=== PATIENT | male | born 1955 | race Two or more races ===

== ENCOUNTER → 2016-06-03 | Outpatient (REF) | payer OTHER | LOC: M SMT 13:09 | PROVIDERS: ATTEND Nurse Practitioner Family | DX: N48.9 Disorder of penis, unspecified (principal) ==

== ENCOUNTER → 2016-06-03 | Outpatient (CLI) | payer OTHER ==
[2016-06-03 13:32] LABS: ANION GAP 10 MEQ/L (8-16); BLOOD UREA NITROGEN 20 MG/DL (7-18); CALCIUM LEVEL 9.9 MG/DL (8.8-10.2); CARBON DIOXIDE LEVEL 29 MEQ/L (21-32); CHLORIDE LEVEL 102 MEQ/L (98-107); CREATININE FOR GFR 0.78 MG/DL (0.70-1.30); GLOMERULAR FILTRATION RATE > 60.0 (>49); GLUCOSE, FASTING 169 MG/DL (80-110); POTASSIUM SERUM 4.3 MEQ/L (3.5-5.1); SODIUM LEVEL 141 MEQ/L (136-145)
== END ==
LOC: M SMT 08:58
PROVIDERS: ATTEND Nurse Practitioner Family
DX: R59.0 Localized enlarged lymph nodes (principal)

== ENCOUNTER → 2016-06-08 | Outpatient (CLI) | payer OTHER ==
--- NOTE | 2016-06-08 15:10 | REP ---
MRI PELVIS WITHOUT AND WITH CONTRAST: 06/08/2016. Clinical history: Penile lesion. Evaluate for penile malignancy. Enlarged inguinal nodes on the left. Technique: The initial pelvic scan attempt was interrupted due to severe claustrophobia and the patient moved to the open bore scanner. He completed the exam with some difficulty and I appreciate his and the technologist's effort in this regard. Coronal and sagittal localizers with axial T1 fat suppressed T2, coronal gradient echo and T2 with fat suppressed T1, sagittal fat suppressed T2 and thin section coronal and sagittal images through the plane of the penis. After infusion, the patient received 18 ml as of ProHance. In the left inguinal region, there are enhancing left inguinal nodes, the largest conglomerate carlos mass 5.1 x 4.8 x 3 cm. Adjacent smaller nodes seen in the left inguinal canal. No similar right inguinal nodes. I do not see deep pelvic nodes in the internal or external iliac chain or perirectal region. No pelvic free fluid. Bone marrow grossly intact. The sacrum, iliac bone, hips and ischia. Prostate and seminal vesicles are not enlarged. Bladder shows no wall thickening or mass. No dilated distal ureter. There is asymmetry at the head of the penis with some slightly hyperintense, slight heterogeneity and hyperintensity. The inguinal mass on the left representing multiple nodes, conglomerate is enhancing. Impression: 1. There is heterogeneous appearance of the glans penis towards the right side of midline with heterogeneous enhancement. Also, there is marked abnormal conglomerate carlos mass / adenopathy on the left inguinal region up to 5.1cm without similar finding on the right. Those nodes on the right are not larger than 11 mm. This would make the largest of these borderline. No deep pelvic nodes, free fluid, bladder abnormality or enlargement of the prostate/seminal vesicles. Marrow signal unremarkable. Signed by Francisco Bauer MD 06/08/2016 05:24 P
--- NOTE | 2016-06-08 15:16 | REP ---
MRI ABDOMEN WITHOUT AND WITH CONTRAST: 06/08/2016. Clinical history: Left inguinal adenopathy/mass with penile lesion. Evaluate for retroperitoneal adenopathy in the abdomen. Technique: Coronal gradient echo T1 and fat suppressed T1 images, axial T1 fat suppressed T1 and T2 images followed by infusion of 18 mL of ProHance with fat suppressed T1 axial and coronal images through the abdomen. Liver and spleen are not enlarged. There is no cyst or solid mass. No biliary dilatation. I see no ascites in the abdomen. The aorta is without aneurysm. Kidneys show small peripheral cortical cysts without hydronephrosis, solid mass or perinephric edema. No hydronephrosis or hydroureter. Largest cyst is peripherally in the interpolar region within the cortex about 11 mm. I see no mass or inflammatory change about the pancreas. The aorta and periaortic region without adenopathy nearby. No mesenteric adenopathy or pathologic sized lesion. There is an 8 mm cystic area at the anterior margin of the body of the pancreas without enhancement of its margins or peripancreatic enhancement. Small bowel loops and colon grossly intact. There is a trace amount of gravel or tiny stones in the dependent gallbladder. Impression: 1. There is no renal solid mass with a few small cortical cysts, the largest laterally on the left 11 mm. 2. No hydronephrosis, hydroureter, or perinephric edema. 3. There is a peripancreatic cyst about 8 mm without abnormal enhancement and the pancreas otherwise entirely unremarkable without adjacent edema or fluid. 4. Liver, spleen, adrenal glands, stomach, small bowel loops and aorta unremarkable. 5. No other acute finding. Signed by Francisco Bauer MD 06/08/2016 05:25 P
== END ==
LOC: M RAD 09:51
PROVIDERS: ATTEND Nurse Practitioner Family
DX: N28.1 Cyst of kidney, acquired (principal); R59.0 Localized enlarged lymph nodes; K86.2 Cyst of pancreas; N48.9 Disorder of penis, unspecified
CPT/HCPCS: 72197; 74183; A9576

== ENCOUNTER → 2016-06-17 | Outpatient (CLI) | payer OTHER ==
[~2016-06-17] MED LIST: LIDOCAINE 1% MDV 20ML VIAL As Ordered ONE
--- NOTE | 2016-06-17 18:32 | REP ---
ULTRASOUND GUIDED LEFT INGUINAL MASS BIOPSY: The procedure was performed under the direct supervision of Dr. Faulkner. The patient has a history of a marked abnormal conglomerate carlos mass/adenopathy in the left inguinal region up to 5.1 cm seen on a previous MRI dated 06/08/2016. The risks and benefits of the procedure were explained to the patient and informed consent was obtained. The left inguinal mass was localized using ultrasound guidance. The skin was prepped and draped in a sterile fashion. 1% Lidocaine was used as a local anesthetic. Using ultrasound guidance a 19/20-gauge coaxial needle biopsy system was inserted and advanced into the mass. 6 core biopsy samples were obtained as well as 6 mL of low viscosity red-colored fluid. All samples were sent to the lab for analysis. The patient tolerated the procedure well and there were no immediate complications. After the appropriate amount of monitored convalescence the patient was discharged from the department. Reviewed by FRANCISCA Patel 06/18/2016 04:04 PEdited and Signed by Dustin Faulkner MD 06/18/2016 05:02 P
== END | disposition home or self-care (01) ==
LOC: M RADPRO 12:21
PROVIDERS: ATTEND Urology
DX: C77.4 Secondary and unspecified malignant neoplasm of inguinal and lower limb lymph nodes (principal); I10 Essential (primary) hypertension; E11.9 Type 2 diabetes mellitus without complications; Z79.84 Long term (current) use of oral hypoglycemic drugs; Z79.899 Other long term (current) drug therapy

== ENCOUNTER → 2016-06-25 | Outpatient (CLI) | payer OTHER ==
[~2016-06-25] MED LIST changes: +GLYX1TAB PO; +LEVA500T PO; -LIDOCAINE 1% MDV 20ML VIAL As Ordered ONE; +LISI10TA4 PO; +METF750T PO; +VITA-122 PO; +instaflex PO
--- NOTE | 2016-06-25 17:37 | REP ---
CHEST, TWO VIEWS: REASON: Lymphadenopathy. PRIORS: None. FINDINGS: The superior mediastinal structures are midline. The cardiac silhouette is unremarkable in size, shape, and position. The diaphragmatic surfaces of the lungs are regular, and the costophrenic angles are clear. The pulmonary mullen are clear. The imaged osseous structures are intact. If mediastinal of hilar lymphadenopathy is of clinical concern then contrast enhanced CT examination of the chest is recommended. IMPRESSION: There is no acute cardiopulmonary disease. Signed by Brody Jolley DO 06/26/2016 11:53 A
[2016-06-25 18:18] LABS: INR 0.89
[2016-06-25 18:30] LABS: MEAN CORPUSCULAR HEMOGLOBIN 29.8 pg (27.0-33.0); MEAN CORPUSCULAR HGB CONC 34.8 g/dl (32.0-36.5); MEAN CORPUSCULAR VOLUME 85.6 fl (80.0-96.0); RED CELL DISTRIBUTION WIDTH 12.8 % (11.5-14.5)
[2016-06-25 18:59] LABS: ANION GAP 11 MEQ/L (8-16); BLOOD UREA NITROGEN 24 MG/DL (7-18); CALCIUM LEVEL 9.8 MG/DL (8.8-10.2); CARBON DIOXIDE LEVEL 29 MEQ/L (21-32); CHLORIDE LEVEL 100 MEQ/L (98-107); GLOMERULAR FILTRATION RATE > 60.0 (>49); GLUCOSE, FASTING 134 MG/DL (80-110); POTASSIUM SERUM 4.2 MEQ/L (3.5-5.1); SODIUM LEVEL 140 MEQ/L (136-145)
== END ==
LOC: M SMT 15:43
PROVIDERS: ATTEND Urology
DX: R59.0 Localized enlarged lymph nodes (principal)

== ENCOUNTER → 2016-07-03 | Outpatient (CLI) | payer OTHER ==
[~2016-07-03] MED LIST changes: +PERCOCET PO
== END ==
LOC: M SMT 15:47
PROVIDERS: ATTEND Urology
DX: D49.59 Neoplasm of unspecified behavior of other genitourinary organ (principal)

== ENCOUNTER 2016-07-07 09:53 | Inpatient (IN) | payer OTHER ==
[~2016-07-07] VITALS: Ht 175.3 cm; Wt 93.4 kg
[2016-07-07] MEDS: LISINOPRIL 10 MG TAB PO SCH (09:00)
[~2016-07-07 09:53] MED LIST changes: -PERCOCET PO
[2016-07-07] MEDS ORDERED: GENTAMICIN 100 MG in APPROPRIATE DILUENT 1 EA IV ONE (10:00)
[2016-07-07] MEDS ORDERED: LR 1,000 ML IV SCH ×2 (10:00→17:15)
[2016-07-07] MEDS ORDERED: VANCOMYCIN HCL 1,000 MG, VIAL MATE ADAPTER 1 EACH in D5W 250 ML IV ONE (11:00)
[2016-07-07] MEDS ORDERED: LIDOCAINE 1% SDV INJ 30 ML VIAL As Ordered ONE (13:47)
[2016-07-07] MEDS ORDERED: BACITRACIN OINT 30GM As Ordered ONE (13:47)
[2016-07-07] MEDS ORDERED: BUPIVACAINE HCL 0.25% 30 ML VIAL As Ordered ONE (13:47)
[2016-07-07] MEDS ORDERED: fentaNYL 100 MCG/2 ML INJECTION (J3010) As Ordered ONE ×2 (13:51→15:04)
[2016-07-07] MEDS ORDERED: MIDAZOLAM INJ 2 MG/2 ML VIAL (J2250) As Ordered ONE (13:51)
[2016-07-07] MEDS ORDERED: LIDOCAINE 2% INJ 100 MG/5 ML SDV (FOR ANES.) As Ordered ONE (13:54)
[2016-07-07] MEDS ORDERED: PROPOFOL 200 MG/20 ML VIAL As Ordered ONE (13:54)
[2016-07-07] MEDS ORDERED: ROCURONIUM BROMIDE 50 MG/5 ML VIAL As Ordered ONE (13:54)
[2016-07-07] MEDS ORDERED: ePHEDrine SULFATE 25 MG/5 ML(5MG/ML) SYRINGE As Ordered ONE (15:39)
[2016-07-07] MEDS ORDERED: PHENYLephrine HCL 500 MCG/5 ML (100MCG/ML) SYRINGE (J2370) As Ordered ONE (15:41)
[2016-07-07] MEDS ORDERED: ONDANSETRON 4MG/2ML VIAL (J2405) As Ordered ONE (15:59)
[2016-07-07] MEDS ORDERED: GLYCOPYRROLATE INJ 0.2 MG/ML 2 ML VIAL As Ordered ONE (16:01)
[2016-07-07] MEDS ORDERED: NEOSTIGMINE 1MG/ML 5 ML SYRINGE (J2710) As Ordered ONE (16:01)
[2016-07-07] MEDS ORDERED: KCL 20MEQ IN D5/.45NACL 1000ML As Ordered ONE (16:47)
[2016-07-07] MEDS ORDERED: ONDANSETRON 4MG/2ML VIAL (J2405) IV PRN ×2 (17:00→17:15)
[2016-07-07] MEDS ORDERED: oxyCODONE 5MG TAB PO PRN (17:00)
[2016-07-07] MEDS ORDERED: MORPHINE 4 MG/ML 1ML SYRINGE IV PRN (17:00)
[2016-07-07] MEDS: KCL 20MEQ IN D5/0.45NS 1000ML 1,000 ML IV SCH (17:00)
[2016-07-07] MEDS ORDERED: METOCLOPRAMIDE INJ 10MG/2ML VIAL (J2765) IV PRN (17:15)
[2016-07-07] MEDS ORDERED: PERCOCET 5MG/325MG TAB PO PRN (17:15)
[2016-07-07] MEDS ORDERED: fentaNYL 100 MCG/2 ML INJECTION (J3010) IV PRN (17:15)
[2016-07-07] MEDS ORDERED: MORPHINE 2 MG/ML 1ML SYRINGE IV PRN (17:15)
[2016-07-07 17:30] VITALS: BP 167/81
[2016-07-07 18:00] VITALS: BP 184/89
[2016-07-07] MEDS ORDERED: LevoFLOXacin IV 500 MG in APPROPRIATE DILUENT 1 EA IV SCH (18:00)
[2016-07-07] MEDS: KETOROLAC 30 MG/ML VIAL (J1885) IV SCH (18:40)
[2016-07-07 19:00] VITALS: BP 188/89
[2016-07-07 20:00] VITALS: BP 172/80
[2016-07-07 21:00] VITALS: BP 154/73
[2016-07-07] MEDS: ACETAMINOPHEN TAB 650MG DOSE (2X325MG) PO SCH (21:27)
[2016-07-07 22:00] VITALS: BP 134/68
--- NOTE | 2016-07-07 23:13 | RO ---
DATE OF PROCEDURE: 07/07/2016 PREOPERATIVE DIAGNOSIS: Penile cancer. POSTOPERATIVE DIAGNOSIS: Penile cancer. PROCEDURE: Open partial penectomy. SURGEON: Dr. Leon Ro MD MBA INTERN: Jose Eduardo Thomas, PGY 3, Resident ANESTHESIA: General. COMPLICATIONS: None. ESTIMATED BLOOD LOSS: 25 mL. 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 He has also a solid mass of about 2 cm in the glans of the penis, which actually does not allow for retraction of the foreskin. For this reason, he has consented for a partial penectomy. DESCRIPTION OF PROCEDURE: In a patient under general anesthesia, in supine position, after prepping and draping the area of the concern, which included the entire genitalia and abdomen, we started by doing a tourniquet with a Gelacio drain in the base of the penis. We then proceeded to fabricio with a marking pen, a circumferential line at the area where we are going to cut the foreskin 1 cm below the penile neoplasm. At that moment in time, with a cold knife, 15 blade, we cut the foreskin and then cut layer by pipe layer helper to the King's fascia. We then, with electro Bovie cautery, opened the King's fascia and then with a cold knife, we cut the corpora cavernosa and the urethra transversely. We suture ligated the dorsal vein of the penis at the superficial dorsal vein as well as the deep dorsal vein with Vicryl #2-0 and silk ties times two. We then proceeded to spatulate and dissected the urethra, spatulating in the urethra in a ventral fashion for about 1.5 cm in length. We then proceeded to close the corpora cavernosa with #2-0 Vicryl starting inside out and outside in in the septum and inside out, outside in in the contralateral corpora cavernosa and tied a knot inside. We then proceeded to place vertical mattress sutures from tunica albuginea of the right corpora cavernosa to the septum and to the tunica albuginea of the left corpora cavernosa and tying knots in separate stitches times ten. We then proceeded to actually secure hemostasis between each stitch with a #2-0 Vicryl in separate stitches also. We then proceeded to reconstruct the urethra by using a #3-0 Monocryl, starting at the apex of the spatulation outside in in the foreskin and inside out in the apex of spatulation and then suturing the urethra to the foreskin with separate stitches of #3-0 Monocryl. Once we completed the urethroplasty, we closed the foreskin on top of the corpora cavernosa in two layers, the first layer with a chromic #3-0 in a running fashion, the second layer with #3-0 Monocryl in separate stitches. We then laced a Drew catheter, 18-Divehi, we inflated the balloon to 10 mL to gravity. We then placed bacitracin, fluffs and firm panties. We then proceeded to actually finish the procedure. The patient will pass to recovery, then to the floor. Once he is tolerating a regular diet, he will be discharged home. The margins for the partial penectomy were negative, permanent pathology analysis did a frozen section on the margins. There were no complications during the surgery.
[2016-07-08 02:00] VITALS: BP 142/72
[2016-07-08] MEDS: KETOROLAC 30 MG/ML VIAL (J1885) IV SCH (02:17)
[2016-07-08] MEDS: KCL 20MEQ IN D5/0.45NS 1000ML 1,000 ML IV SCH (02:17)
[2016-07-08] MEDS: ACETAMINOPHEN TAB 650MG DOSE (2X325MG) PO SCH (05:56)
[2016-07-08 06:00] VITALS: BP 155/76
[2016-07-08 07:55] LABS: MEAN CORPUSCULAR HEMOGLOBIN 29.3 pg (27.0-33.0); MEAN CORPUSCULAR HGB CONC 33.5 g/dl (32.0-36.5); MEAN CORPUSCULAR VOLUME 87.4 fl (80.0-96.0); RED CELL DISTRIBUTION WIDTH 12.8 % (11.5-14.5)
[2016-07-08] MEDS ORDERED: PERCOCET PO (08:08)
[2016-07-08] MEDS ORDERED: LEVA500T PO (08:08)
[2016-07-08 08:11] LABS: ANION GAP 7 MEQ/L (8-16); BLOOD UREA NITROGEN 15 MG/DL (7-18); CALCIUM LEVEL 8.6 MG/DL (8.8-10.2); CARBON DIOXIDE LEVEL 28 MEQ/L (21-32); CHLORIDE LEVEL 104 MEQ/L (98-107); CREATININE FOR GFR 0.86 MG/DL (0.70-1.30); GLOMERULAR FILTRATION RATE > 60.0 (>49); GLUCOSE, FASTING 161 MG/DL (80-110); POTASSIUM SERUM 4.5 MEQ/L (3.5-5.1); SODIUM LEVEL 139 MEQ/L (136-145)
[2016-07-08 08:54] VITALS: BP 155/76
[2016-07-08] MEDS: LISINOPRIL 10 MG TAB PO SCH (08:54)
[2016-07-08] MEDS ORDERED: metFORMIN XR 750 MG TAB PO SCH (09:00)
[2016-07-08] MEDS ORDERED: PANTOPRAZOLE 40MG INJ (PROTONIX) (C9113) IV SCH (09:00)
--- NOTE | 2016-07-08 09:07 | DSES ---
DATE OF ADMISSION: 07/07/2016 DATE OF DISCHARGE: ADMISSION DIAGNOSES: Penile neoplasm. DISCHARGE DIAGNOSIS: Penile neoplasm. SURGERY PERFORMED: Partial penectomy. SURGEON: Dr. Leon Ro DATE OF SURGERY: 07/07/2016 DISCHARGE SURGEON: Dr. Leon Ro ADMITTING SURGEON: Dr. Leon Ro HISTORY OF PRESENT ILLNESS: This is a 60-year-old male patient that had 4 cm inguinal lymphadenopathy and a solid penile neoplasm in the glans of the penis. We did a biopsy of the lymphadenopathy that showed squamous cell carcinoma. He had mild to moderate differentiated metastatic. He has a solid neoplasm on the penile shaft in the glans. For this reason, he has consented for a partial penectomy. The surgery was performed on 07/07/2016 and after this he was admitted. HOSPITALIZATION COURSE: The patient did very well. He has a Drew catheter draining clear urine. He has no fever or chills. He tolerated a regular diet. There were no bleeding episodes during the nighttime. Wound is healing very well. There is some erythema on top of the inguinal lymphadenopathy and some edema. There is no fever. No chills. White blood count is normal. PLAN: The patient requested to go home and for this reason we are sending him home with Levaquin 500 mg one tablet by mouth for 10 days. He will have the Drew catheter to gravity. He will come back next Wednesday at [facility] center for a voiding trial. At that moment in time, we will review the pathology also. He will go home with pain medication, Percocet 5/325 mg one tablet by mouth every 6 hours as needed for pain. He may not carry heavy weight above [address] not [address] under narcotics. He may shower. No sit baths. There were no complications during surgery or hospitalization. [facility]
== END 2016-07-08 09:25 | disposition home or self-care (01) | DRG 709 ==
LOC: M OR 09:53 → EDSTATUS 11:15 → M MS5PR 17:30
PROVIDERS: ADMIT Urology; ATTEND Urology
PROC: 0VBS0ZZ Excision of Penis, Open Approach (ICD-10-PCS; principal; 2016-07-07 11:45)
DX: C60.1 Malignant neoplasm of glans penis (principal); C77.4 Secondary and unspecified malignant neoplasm of inguinal and lower limb lymph nodes

== ENCOUNTER → 2016-07-28 | Outpatient (REF) | payer OTHER ==
[~2016-07-28] MED LIST changes: +PERCOCET PO
[2016-07-28 13:30] LABS: INR 0.99
== END ==
LOC: M LAB REF 12:54
PROVIDERS: ATTEND Internal Medicine Medical Oncology
DX: C60.9 Malignant neoplasm of penis, unspecified (principal)

== ENCOUNTER → 2016-08-05 | Outpatient (CLI) | payer OTHER ==
--- NOTE | 2016-08-06 08:43 | REP ---
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 The patient is status post partial penectomy. Comparisons: Comparison sonography June 17, 2016, comparison MRI study June 08, 2016. TECHNIQUE: 51 minutes following the intravenous injection of a 9.9 mCi dose of F-18 FDG, three-dimensional PET scintigraphy is acquired from the skull base to the proximal thighs. Triplanar noncontrast CT scanning is acquired through the same anatomic range for attenuation correction, and image registration with scan parameters optimized to minimize radiation exposure to the patient. PET scintigraphy and CT datasets were fused and displayed on a workstation with multiplanar and projection display capability. PET/CT Findings: There is hypermetabolic bilateral inguinal and left distal external iliac lymphadenopathy. Maximum standard uptake value in the single hypermetabolic carlos focus in the right inguinal region is 4.5. There is fairly bulky left inguinal lymphadenopathy showing heterogeneous hypermetabolic uptake which ranges up to standard uptake value of 6.1. There is a small 1-1/2 cm carlos focus in the left distal external iliac lymph node chain with maximum standard uptake value of 4.2. No other pelvic lymphadenopathy is seen and no other abnormal hypermetabolic uptake is appreciated. No abnormal hepatic uptake is seen. No suspicious skeletal uptake is appreciated. No pulmonary nodule or hypermetabolic intrathoracic uptake is appreciated. Cholelithiasis is noted. Scan is otherwise unremarkable. Impression: Bilateral inguinal and left external iliac chain hypermetabolic lymphadenopathy. No other hypermetabolic uptake seen. Signed by Dustin Faulkner MD 08/06/2016 12:38 P
== END ==
LOC: M RAD 11:25
PROVIDERS: ATTEND Internal Medicine Medical Oncology
DX: C60.9 Malignant neoplasm of penis, unspecified (principal)
CPT/HCPCS: 78815; A9552

== ENCOUNTER → 2016-08-06 | Outpatient (CLI) | payer OTHER ==
[~2016-08-06] MED LIST changes: +LIDOCAINE W/EPINEPHRINE 1% 20ML VIAL As Ordered ONE; +MIDAZOLAM INJ 2 MG/2 ML VIAL (J2250) As Ordered ONE; +SODIUM BICARBONATE 8.4% INJ 50MEQ 50 ML VIAL As Ordered ONE; +ceFAZolin 1GM INJ (J0690) As Ordered ONE; +fentaNYL 100 MCG/2 ML INJECTION (J3010) As Ordered ONE
--- NOTE | 2016-08-06 15:13 | REPKIM ---
CLINICAL HISTORY: Penile SCCA. The referring service has asked a chest infuse-a -port placement for chemotherapy. PROCEDURE PERFORMED: Placement of totally implantable venous access device under combined sonographic and fluoroscopic guidance INTERVENTIONALIST: Markus Arteaga MD MANGANESE WHEELER: AVELINA Chun IV CONSENT: The risks, benefits and alternatives to the procedure were explained to the patient and informed written consent was obtained. MEDICATIONS: Local Lidocaine, Ancef 1g IV, Versed IV and Fentanyl IV. SEDATION: Conscious sedation using Versed 2.0 mg IV and Fentanyl 100 mcg IV; starting time at 0833 and end at 0918. Independent trained observer was present during the entire duration of the conscious sedation for monitoring. EBL: less than 10 mL FLUORO TIME: 0.3 minutes DEVICE USED: Bard Port 8-Turkish, Single-Lumen Lot#[id number] PROCEDURE/FINDINGS: The patient was brought to the interventional radiology suite and was positioned supine on the table. Time out procedure was performed. Real time ultrasound was used and permanent image stored. The right IJ vein is patent and compressible. Using ultrasound guidance the internal jugular vein was accessed with a micropuncture needle, after infiltration of the skin and deep tissues with local anesthetic. A peel-away sheath was placed. The catheter tip was inserted via the sheath under controlled respiration. The sheath was removed, and the catheter was flushed with heparinized saline and clamped. Next attention was turned to creation of a subcutaneous pocket for the port along the upper chest. The overlying skin and deep tissues were infiltrated with local anesthetic. A transverse skin incision was made long enough to accommodate the reservoir, and using blunt dissection a subcutaneous pocket was created. A tunnel was created from the pocket to the access site. A clamp was advanced from the pocket incision to the venous access site and used to grasp the free end of the catheter and pull it through to the pocket incision. The catheter was trimmed, attached to the reservoir, and flushed with heparinized saline. The reservoir was inserted into the pocket and secured with 2-0 absorbable sutures. The deep tissue was closed with interrupted 2-0 Vicryl suture. The skin incision was closed with a running subcuticular suture of 4-0 Vicryl. The venotomy incision was closed with 4-0 Vicryl suture. Mastisol and Steri-Strips were applied. The port was then accessed and Heparin (100 units/mL concentration) locked in the port. A sterile dressing was then applied. Post procedure chest spot film radiograph showed the tip of the catheter is at the cavoatrial junction. The patient tolerated the procedure well with no immediate complications. This procedure was performed using ultrasound and fluoroscopy. Dr. Arteaga was present. IMPRESSION: 1. The right IJ vein is patent and compressible. 2. Successful placement of right IJ chest port placement as discussed above. The chest [id number] is ready for use. cc: MD MARISA Zleaya
== END | disposition home or self-care (01) ==
LOC: M IRPRO 06:58
PROVIDERS: ATTEND Internal Medicine Medical Oncology
DX: C60.9 Malignant neoplasm of penis, unspecified (principal)
CPT/HCPCS: 36561; 76937; 77001; C1788; C1894; J0690; J2250; J3010

== ENCOUNTER → 2016-10-08 | Outpatient (CLI) | payer OTHER ==
[~2016-10-08] MED LIST changes: +ISOVUE-370 76% 100ML VIAL (Q9967) As Ordered ONE; -LIDOCAINE W/EPINEPHRINE 1% 20ML VIAL As Ordered ONE; -MIDAZOLAM INJ 2 MG/2 ML VIAL (J2250) As Ordered ONE; -SODIUM BICARBONATE 8.4% INJ 50MEQ 50 ML VIAL As Ordered ONE; -ceFAZolin 1GM INJ (J0690) As Ordered ONE; -fentaNYL 100 MCG/2 ML INJECTION (J3010) As Ordered ONE
--- NOTE | 2016-10-09 03:13 | REP ---
Clinical: Penile cancer. Technique: Axial contrast enhanced images from the lung bases to the pubic symphysis using 100 ml Isovue 370 intravenous contrast material with precontrast and delayed images of the abdomen as well as coronal and sagittal re-formations. Findings: Lung bases demonstrate minimal presumed age-related interstitial changes are suggested without obvious consolidation, mass, nodule or pleural effusion. Visualized portions of the heart and pericardium are normal. Liver, spleen, pancreas, bilateral adrenal glands and kidneys are essentially normal. A 1 cm right renal hypodensity with central calcification likely represents complex cyst. The enteric system is without obstruction or acute inflammatory process. No evidence for intraperitoneal or retroperitoneal adenopathy. Pelvis demonstrates normal bladder. The prostate gland is heterogeneous and moderately enlarged measuring approximately 4.5 cm maximal diameter. Rectosigmoid colon is normal in appearance. No ascites. No free air. Vascular structures are normal and there is no evidence for aortic aneurysm or dissection. Marked left inguinal adenopathy along with significant right inguinal and left pelvic sidewall adenopathy is appreciated. Conglomerate left inguinal adenopathy with essentially continuous extension to the left pelvic sidewall measures roughly 6.7 cm maximal diameter. Surrounding subcutaneous stranding adjacent to the bilateral inguinal left pelvic sidewall adenopathy is noted. The osseous structures demonstrate degenerative changes without focal abnormality. Impression: 1. Severe left inguinal/open sidewall adenopathy/metastatic disease along with moderate to significant right inguinal adenopathy. 2. 1 cm presumed complex right renal cyst may be followed by ultrasound if necessary. Signed by Juan Ramon Hernandez MD 10/09/2016 03:05 A
== END ==
LOC: M RAD 10:38
PROVIDERS: ATTEND Urology
DX: C60.9 Malignant neoplasm of penis, unspecified (principal)
CPT/HCPCS: 74178; Q9967

== ENCOUNTER → 2016-10-26 | Outpatient (CLI) | payer OTHER ==
[~2016-10-26] MED LIST changes: +ACET30TAB PO; +CEFD1CAP8 PO; +CIPR500T3 PO; -ISOVUE-370 76% 100ML VIAL (Q9967) As Ordered ONE; +LEVA1TAB2 PO; -LEVA500T PO; +NYST10PW TOP; +TYLE650T35 PO
[2016-10-26 14:06] LABS: MEAN CORPUSCULAR HEMOGLOBIN 29.6 pg (27.0-33.0); MEAN CORPUSCULAR HGB CONC 31.7 g/dl (32.0-36.5); MEAN CORPUSCULAR VOLUME 93.4 fl (80.0-96.0); WHITE BLOOD COUNT 7.8 K/mm3 (4.0-10.0)
[2016-10-26 14:17] LABS: ALBUMIN 3.8 GM/DL (3.2-5.2); ALBUMIN/GLOBULIN RATIO 1.09 (1.00-1.93); ALKALINE PHOSPHATASE 98 U/L (45-117); ALT/SGPT 18 U/L (12-78); ANION GAP 7 MEQ/L (8-16); AST/SGOT 15 U/L (15-37); BILIRUBIN,TOTAL 0.3 MG/DL (0.2-1.0); BLOOD UREA NITROGEN 20 MG/DL (7-18); CALCIUM LEVEL 10.5 MG/DL (8.8-10.2); CARBON DIOXIDE LEVEL 28 MEQ/L (21-32); CHLORIDE LEVEL 100 MEQ/L (98-107); CREATININE FOR GFR 0.65 MG/DL (0.70-1.30); GLOMERULAR FILTRATION RATE > 60.0 (>49); GLUCOSE, FASTING 144 MG/DL (80-110); SODIUM LEVEL 135 MEQ/L (136-145); TOTAL PROTEIN 7.3 GM/DL (6.4-8.2)
== END ==
LOC: M SMT 09:59
PROVIDERS: ATTEND Urology
DX: N48.9 Disorder of penis, unspecified (principal)

== ENCOUNTER → 2016-10-28 | Outpatient (CLI) | payer OTHER ==
--- NOTE | 2016-10-29 01:34 | REP ---
Clinical: neoplasm. Comparison: 06/25/2016. Technique: PA and lateral. Findings: The mediastinum and cardiac silhouette are normal. The lung mullen are clear and without acute consolidation, effusion, or pneumothorax. The skeletal structures are intact and normal. Impression: 1. No acute cardiopulmonary process. Signed by Juan Ramon Hernandez MD 10/29/2016 01:26 A
[2016-10-29 10:03] LABS: MEAN CORPUSCULAR HGB CONC 32.1 g/dl (32.0-36.5); MEAN CORPUSCULAR VOLUME 93.3 fl (80.0-96.0); RED CELL DISTRIBUTION WIDTH 16.7 % (11.5-14.5); WHITE BLOOD COUNT 8.4 K/mm3 (4.0-10.0)
[2016-10-29 10:11] LABS: INR 0.81
[2016-10-29 10:32] LABS: ANION GAP 9 MEQ/L (8-16); BLOOD UREA NITROGEN 21 MG/DL (7-18); CALCIUM LEVEL 10.4 MG/DL (8.8-10.2); CARBON DIOXIDE LEVEL 27 MEQ/L (21-32); CHLORIDE LEVEL 99 MEQ/L (98-107); CREATININE FOR GFR 0.66 MG/DL (0.70-1.30); GLOMERULAR FILTRATION RATE > 60.0 (>49); GLUCOSE, FASTING 91 MG/DL (80-110); SODIUM LEVEL 135 MEQ/L (136-145)
[2016-10-29 10:45] LABS: POTASSIUM SERUM 5.5 MEQ/L (3.5-5.1)
== END ==
LOC: M SMT 14:59
PROVIDERS: ATTEND Urology
DX: Z01.818 Encounter for other preprocedural examination (principal); D49.59 Neoplasm of unspecified behavior of other genitourinary organ; R59.1 Generalized enlarged lymph nodes

== ENCOUNTER → 2016-10-29 | Outpatient (CLI) | payer OTHER ==
--- NOTE | 2016-10-29 15:30 | ECGEPIP ---
Stationary ECG Study [facility] Test Date: 2016-10-29 Pat Name: GAVIN RUFFIN Department: Room: - Gender: M Physician: DOROTHY : [id number] Requested By: XIOMARA Pryor Order Number: [id number] Reading MD: Gavin Patel Measurements Intervals [place] Rate: 111 P: 64 MS: 154 QRS: 33 QRSD: 86 T: 44 QT: 306 QTc: 417 Interpretive Statements SINUS TACHYCARDIA NONSPECIFIC T-WAVE ABNORMALITY ABNORMAL RHYTHM ECG No prior ECG available for comparison at the time of interpretation. Electronically Signed On 10-29-2016 15:29:51 EDT by Gavin Patel
== END ==
LOC: M EKG 14:26
PROVIDERS: ATTEND Urology
DX: Z01.818 Encounter for other preprocedural examination (principal); D49.59 Neoplasm of unspecified behavior of other genitourinary organ; R59.1 Generalized enlarged lymph nodes

== ENCOUNTER → 2016-11-02 | Outpatient (REF) | payer OTHER | LOC: M SMT 17:49 | PROVIDERS: ATTEND Urology | DX: Z01.818 Encounter for other preprocedural examination (principal); D49.59 Neoplasm of unspecified behavior of other genitourinary organ; R59.1 Generalized enlarged lymph nodes ==

== ENCOUNTER 2016-11-03 07:24 | Inpatient (IN) | payer OTHER ==
[~2016-11-03] VITALS: Ht 177.8 cm; Wt 88.9 kg
[~2016-11-03 07:24] MED LIST changes: -CEFD1CAP8 PO; -CIPR500T3 PO; -NYST10PW TOP; -TYLE650T35 PO
[2016-11-03] MEDS ORDERED: LIDOCAINE 2% MDV 20 ML VIAL As Ordered ONE (07:26)
[2016-11-03] MEDS ORDERED: BUPIVACAINE HCL 0.25% 30 ML VIAL As Ordered ONE (07:26)
[2016-11-03] MEDS ORDERED: LR 1,000 ML IV ONE (07:30)
[2016-11-03] MEDS ORDERED: VANCOMYCIN HCL 1,000 MG, VIAL MATE ADAPTER 1 EACH in D5W 250 ML IV ONE (08:00)
[2016-11-03] MEDS ORDERED: GENTAMICIN 100 MG in APPROPRIATE DILUENT 1 EA IV ONE (08:00)
[2016-11-03 08:07] LABS: ALBUMIN 3.9 GM/DL (3.2-5.2); ANION GAP 6 MEQ/L (8-16); BLOOD UREA NITROGEN 15 MG/DL (7-18); CALCIUM LEVEL 10.4 MG/DL (8.8-10.2); CARBON DIOXIDE LEVEL 28 MEQ/L (21-32); CHLORIDE LEVEL 102 MEQ/L (98-107); CREATININE FOR GFR 0.71 MG/DL (0.70-1.30); GLOMERULAR FILTRATION RATE > 60.0 (>49); GLUCOSE, FASTING 160 MG/DL (80-110); PHOSPHORUS LEVEL 3.2 MG/DL (2.5-4.9); POTASSIUM SERUM 4.5 MEQ/L (3.5-5.1); SODIUM LEVEL 136 MEQ/L (136-145)
[2016-11-03] MEDS: LISINOPRIL 10 MG TAB PO SCH (09:00)
[2016-11-03] MEDS ORDERED: BUPIVACAINE HCL 0.25% 10 ML VIAL As Ordered ONE (09:45)
[2016-11-03] MEDS ORDERED: HYDROmorphone HCL 2 MG/ML 1ML VIAL (J1170) As Ordered ONE (10:30)
[2016-11-03] MEDS ORDERED: NEOSTIGMINE 1MG/ML 5 ML SYRINGE (J2710) As Ordered ONE (10:30)
[2016-11-03] MEDS ORDERED: GLYCOPYRROLATE INJ 0.2 MG/ML 2 ML VIAL As Ordered ONE (10:30)
[2016-11-03] MEDS ORDERED: ROCURONIUM BROMIDE 50 MG/5 ML VIAL/SYRINGE As Ordered ONE ×2 (11:02→12:57)
[2016-11-03] MEDS ORDERED: LIDOCAINE 2% INJ 100 MG/5 ML SDV (FOR ANES.) As Ordered ONE (11:04)
[2016-11-03] MEDS ORDERED: KETOROLAC 60 MG/2 ML VIAL (J1885) As Ordered ONE (11:04)
[2016-11-03] MEDS ORDERED: ONDANSETRON 4MG/2ML VIAL (J2405) As Ordered ONE (11:04)
[2016-11-03] MEDS ORDERED: MIDAZOLAM INJ 2 MG/2 ML VIAL (J2250) As Ordered ONE (11:04)
[2016-11-03] MEDS ORDERED: fentaNYL 250 MCG/5 ML INJECTION (J3010) As Ordered ONE (11:04)
[2016-11-03] MEDS ORDERED: dexameTHASONE 4 MG/ML 1ML VIAL (J1100) As Ordered ONE (11:04)
[2016-11-03] MEDS ORDERED: PROPOFOL 200 MG/20 ML VIAL As Ordered ONE ×2 (11:04→16:16)
[2016-11-03] MEDS ORDERED: PHENYLephrine HCL 500 MCG/5 ML (100MCG/ML) SYRINGE (J2370) As Ordered ONE ×2 (11:44→13:02)
[2016-11-03] MEDS ORDERED: ePHEDrine SULFATE 25 MG/5 ML(5MG/ML) SYRINGE As Ordered ONE (15:46)
[2016-11-03] MEDS ORDERED: LR 1,000 ML IV SCH (17:00)
[2016-11-03] MEDS ORDERED: PERCOCET 5MG/325MG TAB PO PRN (17:00)
[2016-11-03] MEDS ORDERED: HYDROmorphone HCL 1 MG/ML SYRINGE (J1170) IV PRN (17:00)
[2016-11-03] MEDS ORDERED: fentaNYL 100 MCG/2 ML INJECTION (J3010) IV PRN (17:00)
[2016-11-03] MEDS ORDERED: ONDANSETRON 4MG/2ML VIAL (J2405) IV PRN ×2 (17:00→17:15)
[2016-11-03 17:29] LABS: MEAN CORPUSCULAR HEMOGLOBIN 30.3 pg (27.0-33.0); MEAN CORPUSCULAR HGB CONC 33.3 g/dl (32.0-36.5); RED CELL DISTRIBUTION WIDTH 14.8 % (11.5-14.5); WHITE BLOOD COUNT 9.6 K/mm3 (4.0-10.0)
[2016-11-03 17:43] LABS: ANION GAP 9 MEQ/L (8-16); BLOOD UREA NITROGEN 14 MG/DL (7-18); CALCIUM LEVEL 8.6 MG/DL (8.8-10.2); CARBON DIOXIDE LEVEL 24 MEQ/L (21-32); CHLORIDE LEVEL 102 MEQ/L (98-107); GLOMERULAR FILTRATION RATE > 60.0 (>49); GLUCOSE, FASTING 218 MG/DL (80-110); POTASSIUM SERUM 5.1 MEQ/L (3.5-5.1); SODIUM LEVEL 135 MEQ/L (136-145)
[2016-11-03 17:45] VITALS: BP 141/80
[2016-11-03 18:15] VITALS: BP 137/69
[2016-11-03] MEDS: KETOROLAC 30 MG/ML VIAL (J1885) IV SCH (18:36)
[2016-11-03] MEDS: CIPROFLOXACIN 500 MG TAB PO SCH (18:36)
[2016-11-03] MEDS: KCL 20MEQ IN D5/0.45NS 1000ML 1,000 ML IV SCH (18:37)
[2016-11-03 19:15] VITALS: BP 123/56
[2016-11-03] MEDS: PANTOPRAZOLE 40MG INJ (PROTONIX) (C9113) IV SCH (20:11)
[2016-11-03 20:15] VITALS: BP 128/56
[2016-11-03 21:15] VITALS: BP 123/58
[2016-11-03 22:15] VITALS: BP 120/60
[2016-11-03] MEDS: PERCOCET 5MG/325MG TAB PO PRN (23:46)
[2016-11-04 02:00] VITALS: BP 120/60
[2016-11-04] MEDS: KETOROLAC 30 MG/ML VIAL (J1885) IV SCH ×2 (02:55→11:57)
[2016-11-04] MEDS: KCL 20MEQ IN D5/0.45NS 1000ML 1,000 ML IV SCH ×2 (05:52→13:56)
[2016-11-04] MEDS: CIPROFLOXACIN 500 MG TAB PO SCH ×2 (05:52→18:00)
[2016-11-04 06:00] VITALS: BP 125/58
[2016-11-04 06:18] LABS: MEAN CORPUSCULAR HEMOGLOBIN 30.6 pg (27.0-33.0); MEAN CORPUSCULAR HGB CONC 33.4 g/dl (32.0-36.5); MEAN CORPUSCULAR VOLUME 91.7 fl (80.0-96.0); WHITE BLOOD COUNT 10.4 K/mm3 (4.0-10.0)
[2016-11-04 06:41] LABS: ANION GAP 8 MEQ/L (8-16); BLOOD UREA NITROGEN 17 MG/DL (7-18); CALCIUM LEVEL 8.3 MG/DL (8.8-10.2); CARBON DIOXIDE LEVEL 25 MEQ/L (21-32); CHLORIDE LEVEL 102 MEQ/L (98-107); CREATININE FOR GFR 0.79 MG/DL (0.70-1.30); GLOMERULAR FILTRATION RATE > 60.0 (>49); GLUCOSE, FASTING 169 MG/DL (80-110); POTASSIUM SERUM 4.4 MEQ/L (3.5-5.1); SODIUM LEVEL 135 MEQ/L (136-145)
[2016-11-04] MEDS: LISINOPRIL 10 MG TAB PO SCH (08:59)
[2016-11-04] MEDS: PERCOCET 5MG/325MG TAB PO PRN ×2 (09:02→18:53)
[2016-11-04 10:00] VITALS: BP 172/87
--- NOTE | 2016-11-04 12:25 | RO ---
DATE OF PROCEDURE: 11/03/2016 PREPROCEDURE DIAGNOSIS: Penile cancer plus bilateral lymphadenopathy. POSTPROCEDURE DIAGNOSES: Penile cancer plus bilateral lymphadenopathy. FINDINGS: 4 cm left inguinal lymphadenopathy plus 4 cm right inguinal lymphadenopathy. PROCEDURE: Open bilateral inguinal superficial and deep lymph node dissection plus left sartorius muscle flap. SURGEON: Dr. Leon Ro INHALATION THERAPIST: None. ANESTHESIA: General. COMPLICATIONS: None. ESTIMATED BLOOD LOSS: 250 mL. TRANSFUSIONS: 2 units of red blood cells. HISTORY OF PRESENT ILLNESS: This is a 61-year-old male patient with history of penile cancer. The patient has palpable lymphadenopathy bilaterally. On the left side, he has a more than 4 cm lymphadenopathy palpable. For this reason, he received four cycles of chemotherapy. The CT scan and PET scan shows a 4 cm mass on the left inguinal area with necrotic liquefied material and also there is a mass on the right inguinal area. He has bilateral inguinal lymphadenopathy after chemotherapy. For this reason, he has consented for open bilateral inguinal superficial and deep lymph node dissections, possible bilateral sartorius flap reconstruction, possible bilateral pelvic lymph node dissections. DESCRIPTION OF OPERATION: With the patient under general anesthesia in supine position, after prepping and draping the area of concern which included the entire abdomen, genitalia and inguinal areas and mid thighs, we prepped and draped and placed a #16-Gabonese Drew catheter, inflated the balloon to 10 mL and placed it to gravity. We then proceeded to do an inguinal oblique incision in the area above the crease of the inguinal area for about 10 cm in length. Through this incision with Bovie cautery, we created Lory and Camper's flaps underneath the skin. We dissected about 3 cm wide skin flap that was on top of the mass and set it as an anterior margin. We then proceeded to dissect the 4 cm lymphadenopathy on the inguinal area by dissecting with a Harmonic scalpel. The lymphatics were sealed with Harmonic scalpel and with #2-0 silks. We dissected the upper part of the lymphadenopathy uncovering the whole inguinal ligament from pelvic area to the iliac crest. We then proceeded to actively dissect the lateral margins of the neoplasm and then dissected saphenous vein. Once we dissected saphenous vein, we ligated the saphenous vein with #2-0 silk ties times two on each side and cut in the middle. We then dissected the lower part of the lymphadenopathy. The borders of dissection were adductor muscle, the sartorius muscle, inferiorly superiorly the inguinal ligament and inferiorly up to the one-third of the thigh ligating the saphenous vein. We then proceeded to dissect the lymphadenopathy with the Harmonic scalpel ligating lymphatics with Harmonic scalpel and #2-0 silk ties. Hemostasis was performed also with Harmonic scalpel and #2-0 ties. The mass then was excised completely and was sent for frozen analysis which came back positive for penile carcinoma. We then proceeded to actively dissect the deep lymph node dissection by opening the fossa ovalis and the fascia darek. We dissected lymph nodes around the femoral vein and the femoral artery. We sent them for frozen analysis also and came back positive for malignancy. We dissected the saphenous vein and entrance to the femoral vein and dissected the tissue around it and cut the saphenous vein and sutures it with #4-0 Prolene in a running fashion. We then proceeded to actually irrigate the wound with sterile water. There were no bleeding vessels. We then proceeded to actually transpose the sartorius muscle by resecting its insertion into the inguinal area and moving it across on top of the vessels and suture it into the inguinal ligament with #2-0 Prolene times four. This covered the femoral vessels for future XRT if needed. Once lymphostasis and hemostasis was performed, we passed a 15 drain into the groin wound and extracted it inside out with the harpoon of the drainage, secured the drainage with #3-0 Nylon. We then closed the wound with #3-0 Vicryl in separate stitches, the first subcutaneous layer and then the skin with wolfgang. Specimens were left superficial lymph node groin dissection, left deep groin dissection, left deep inguinal lymph node dissections, anterior margin of the skin and also left side superior inguinal margin and then we also resected the left perivascular lymph nodes. Once the wound was closed on the left side, we did an oblique incision above the crease of the inguinal area on the right side for about 8 cm in length. With electro Bovie cautery, we opened the Lory and the Camper's fascia. We created flaps of skin below and above the 4 cm neoplasm also in the inguinal area. We dissected the inguinal lymphadenopathy with the Harmonic scalpel and ligated vessels with #2-0 silk and clips. We identified the saphenous vein at the entrance of the femoral vein and put a right angle and cut the saphenous vein and ligated the saphenous vein with #4-0 Prolene in running fashion. We then proceeded with Harmonic scalpel to actually dissect all the superficial lymph node dissection including the superficial right lymphadenopathy which was about 4 cm in diameter. Our limits of dissection was superiorly the inguinal ligaments, the adductor muscles, the sartorius muscles and one-third of the thigh inferiorly. We cut saphenous vein also and ligated it times two with #2-0 silk stitches. Once this was performed, we incised the fascia darek and landed on top of the femoral vein and femoral artery. We dissected the lymph nodes around the femoral artery and femoral vein and sent it for permanent analysis also. We secured lymphostasis with Harmonic scalpel and with clips. Once this was performed, we could not see any evidence of any type of mass. At that moment in time, we actually decided to put a #15 round drain into the wound in the groin and coming in, out with a harpoon of the drain. Secured the drain with #3-0 Nylon. We closed the wound in two layers, the first layer with separate stitches of Vicryl #3-0 closing Lory and Camper's fascia in separate stitches and then the skin with wolfgang. We placed on both sides 4x4 and Tegaderm and both JACKI drainage were to bulb suction. PLAN: The patient will pass to recovery and then to the floor with Drew catheter to gravity with bilateral double JACKI drains to bulb suction. He will have bed rest for 48 hours. After 48 hours, he will ambulate. He will have above knee thromboembolic deterrent stockings (TEDS) and Sequential compression devices (SCD) and once he is ambulating very well, voiding very well and the pain is controlled with oral pain medication, we will discharge him home. His JACKI drains will stay there until it is only 15 mL of output per 24 hours. All pathology specimens including the right superficial inguinal lymph node dissections and the right deep inguinal lymph node dissections were sent for permanent pathology analysis.
[2016-11-04 14:00] VITALS: BP 136/71
[2016-11-04] MEDS: PANTOPRAZOLE 40MG INJ (PROTONIX) (C9113) IV SCH (19:41)
[2016-11-04 22:00] VITALS: BP 133/76
[2016-11-05] MEDS: PERCOCET 5MG/325MG TAB PO PRN ×2 (01:44→10:13)
[2016-11-05] MEDS: CIPROFLOXACIN 500 MG TAB PO SCH (05:42)
[2016-11-05 06:00] VITALS: BP 144/79
[2016-11-05 06:08] LABS: MEAN CORPUSCULAR HEMOGLOBIN 30.8 pg (27.0-33.0); MEAN CORPUSCULAR HGB CONC 33.6 g/dl (32.0-36.5); MEAN CORPUSCULAR VOLUME 91.8 fl (80.0-96.0); WHITE BLOOD COUNT 8.1 K/mm3 (4.0-10.0)
[2016-11-05 06:45] LABS: ANION GAP 5 MEQ/L (8-16); BLOOD UREA NITROGEN 16 MG/DL (7-18); CALCIUM LEVEL 8.1 MG/DL (8.8-10.2); CARBON DIOXIDE LEVEL 28 MEQ/L (21-32); CHLORIDE LEVEL 105 MEQ/L (98-107); CREATININE FOR GFR 0.66 MG/DL (0.70-1.30); GLOMERULAR FILTRATION RATE > 60.0 (>49); GLUCOSE, FASTING 143 MG/DL (80-110); POTASSIUM SERUM 4.2 MEQ/L (3.5-5.1); SODIUM LEVEL 138 MEQ/L (136-145)
[2016-11-05 08:00] VITALS: BP 144/79
[2016-11-05] MEDS: LISINOPRIL 10 MG TAB PO SCH (08:00)
[2016-11-05] MEDS ORDERED: TYLE650T35 PO (13:18)
[2016-11-05] MEDS ORDERED: CIPR500T3 PO (13:18)
[2016-11-05 14:00] VITALS: BP 136/69
--- NOTE | 2016-11-06 16:00 | DSES ---
DATE OF ADMISSION: 11/03/2016 DATE OF DISCHARGE: 11/05/2016 ADMISSION DIAGNOSIS: Penile cancer plus bilateral lymphadenopathy. DISCHARGE DIAGNOSIS: Penile cancer plus bilateral lymphadenopathy. ADMITTING SURGEON: Dr. Leon Ro. DISCHARGE SURGEON: Dr. Leon Ro. PROCEDURE PERFORMED: Open bilateral superficial and deep inguinal lymph node dissections, plus left sartorius muscle flap. COMPLICATIONS: None. ESTIMATED BLOOD LOSS: 750. HISTORY OF PRESENT ILLNESS: A 61-year-old male patient with a history of penile cancer and a partial penectomy. He has bilateral inguinal lymphadenopathy. He has received chemotherapy four cycles due to positive lymphadenopathy on biopsy. He is here today for bilateral open superficial and deep inguinal lymph node dissections, possible pelvic lymph node dissections bilaterally for penile cancer. This procedure was performed on 11/03/2016. After this, he was admitted to the hospital. HOSPITALIZATION COURSE: The patient on postoperative day one was started on a regular diet. He was at bedrest to prevent lymphedema and leg swelling. The Dalton-Corral (JACKI) outputs were in total 150 mL per day. Urine output was adequate with a Drew catheter. On postoperative day one, he was ambulating very well. We took the Drew catheter out and he voided spontaneously very well. The JACKI output was around 30 mL per shift bilaterally. The patient's pain was controlled with oral pain medications. He was tolerating a regular diet. For this reason, he requested to go home and we agreed upon this. He will be going home with the following indications: 1. Ciprofloxacin 500 mg one tablet by mouth twice a day for 10 days. 2. JACKI drainage to bulb suction. 3. Ambulate three times a day. 4. Tylenol 650 mg one tablet by mouth every eight hours as needed for pain. 5. He will followup at [facility] in one week. 6. He cannot carry heavy weightlifting above [address] under narcotics. There were no complications of his surgery or his hospitalization.
== END 2016-11-05 14:42 | disposition home or self-care (01) | DRG 825 ==
LOC: M OR 07:24 → M MS5PR 17:35
PROVIDERS: ADMIT Urology; ATTEND Urology
PROC: 07BH0ZX Excision of Right Inguinal Lymphatic, Open Approach, Diagnostic (ICD-10-PCS; 2016-11-03)
PROC: 30253N1 (ICD-10-PCS; 2016-11-03)
PROC: 07BJ0ZX Excision of Left Inguinal Lymphatic, Open Approach, Diagnostic (ICD-10-PCS; principal; 2016-11-03 09:15)
DX: C77.4 Secondary and unspecified malignant neoplasm of inguinal and lower limb lymph nodes (principal); C60.9 Malignant neoplasm of penis, unspecified; L04.1 Acute lymphadenitis of trunk; E11.9 Type 2 diabetes mellitus without complications; I10 Essential (primary) hypertension; Z79.84 Long term (current) use of oral hypoglycemic drugs; Z79.899 Other long term (current) drug therapy

== ENCOUNTER → 2016-11-30 | Outpatient (REF) | payer OTHER ==
[~2016-11-30] MED LIST changes: +CEFD1CAP8 PO; +CIPR500T3 PO; +NYST10PW TOP; +TYLE650T35 PO
== END ==
LOC: M SMT 12:55
PROVIDERS: ATTEND Nurse Practitioner Women's Health
DX: C60.9 Malignant neoplasm of penis, unspecified (principal)

== ENCOUNTER → 2016-12-17 | Outpatient (CLI) | payer OTHER ==
[~2016-12-17] MED LIST changes: +GASTROGRAFIN SOLUTION 30ML (Q9963) As Ordered ONE; +ISOVUE-370 76% 100ML VIAL (Q9967) As Ordered ONE
--- NOTE | 2016-12-18 14:32 | REP ---
Clinical: Penile carcinoma. Technique: Axial contrast enhanced images from the thoracic inlet to the upper abdomen using 100 ml Isovue 370 intravenous contrast material with coronal and sagittal re-formations. Findings: Lung bases are well aerated and clear. No pulmonary parenchymal consolidation, nodule or mass lesion is appreciated. No pleural effusion/reaction or pneumothorax. Again bronchial tree is patent. No significant axillary, hilar, or mediastinal adenopathy. Mediastinum demonstrates atherosclerotic changes to the thoracic aorta and coronary arteries without aortic aneurysm/dissection or cardiomegaly. No pericardial effusion. Musculoskeletal structures demonstrate degenerative changes without significant focal osseous abnormality; hemangioma in the T9 vertebral body noted. Upper abdomen demonstrates cholelithiasis. Impression: No significant, acute mediastinal or pleuroparenchymal process appreciated. Signed by Juan Ramon Hernandez MD 12/17/2016 11:42 P
--- NOTE | 2016-12-18 14:33 | REP ---
Nickel: Penile carcinoma. Technique: Axial contrast enhanced images from the lung bases to the pubic symphysis using oral and 100 ml Isovue 370 intravenous contrast material with precontrast and delayed images of the abdomen as well as coronal and sagittal re-formations. Comparison: 10/08/2016. Findings: Lung bases are relatively clear. Visualized portions of the heart and pericardium are normal. Liver, spleen, pancreas, bilateral adrenal glands and kidneys are relatively normal. A small complex 1 cm cyst identified along the medial aspect of the right kidney remains stable. Cholelithiasis noted without acute cholecystitis. The enteric system is without obstruction or acute inflammatory process. Normal terminal ileum and appendix identified in the right lower quadrant. Colonic and sigmoid diverticula noted without acute diverticulitis. Fluid collections/necrotic lymph nodes in the bilateral inguinal canals (left greater than right) are again identified and appear somewhat improved. A pigtail catheter is identified within the presumed necrotic lymph nodes in the left groin. Right inguinal necrotic lymph node measures 3.4 cm maximal diameter. Fluid collection/ necrotic node in the left groin measures 4.4 cm maximal diameter and more solid appearing adenopathy adjacent to the left pubic symphysis measures 4.5 cm maximal diameter. No obvious intra-abdominal or retroperitoneal lymph nodes are identified. No intra-abdominal or pelvic mass lesion appreciated. No ascites. No free air. Scrotal wall edema noted. Impression: 1. Necrotic changes to the large bilateral inguinal/groin lymph nodes (left greater than right). Pigtail catheter identified in the left inguinal collection/necrotic node. 2. Increased scrotal wall edema. 3. No obvious intra-abdominal or pelvic mass lesion, metastatic disease or further adenopathy. No ascites. 4. Chronic changes including cholelithiasis, diverticulosis, and degenerative changes to the musculoskeletal structures. Signed by Juan Ramon Hernandez MD 12/17/2016 11:51 P
== END ==
LOC: M RAD 13:42
PROVIDERS: ATTEND Urology
DX: C60.9 Malignant neoplasm of penis, unspecified (principal)
CPT/HCPCS: 71260; 74170; Q9963; Q9967

== ENCOUNTER 2017-01-18 12:31 | Inpatient (IN) | payer OTHER ==
[~2017-01-18] VITALS: Ht 177.8 cm; Wt 95.5 kg
[~2017-01-18 12:31] MED LIST changes: -CEFD1CAP8 PO; -GASTROGRAFIN SOLUTION 30ML (Q9963) As Ordered ONE; -ISOVUE-370 76% 100ML VIAL (Q9967) As Ordered ONE; -NYST10PW TOP
[2017-01-18] MEDS ORDERED: NS 2,860 ML in APPROPRIATE DILUENT 1 EA IV ONE (13:15)
[2017-01-18] MEDS ORDERED: ACETAMINOPHEN 325 MG TAB PO ONE (13:15)
[2017-01-18] MEDS ORDERED: VANCOMYCIN HCL 1,000 MG, VIAL MATE ADAPTER 1 EACH in D5W 250 ML IV ONE (13:30)
[2017-01-18 13:54] LABS: MEAN CORPUSCULAR HEMOGLOBIN 27.1 pg (27.0-33.0); MEAN CORPUSCULAR HGB CONC 32.5 g/dl (32.0-36.5); MEAN CORPUSCULAR VOLUME 83.7 fl (80.0-96.0); PLATELET COUNT, AUTOMATED 182 10^3/uL (150-450); RED CELL DISTRIBUTION WIDTH 15.1 % (11.5-14.5); WHITE BLOOD COUNT 10.7 10^3/uL (4.0-10.0)
[2017-01-18 13:59] LABS: YEAST LIKE CELL URINE AUTO LARGE
[2017-01-18 14:16] LABS: ADD MANUAL DIFFER YES; DIFF SLIDE NUMBER 223
[2017-01-18 14:18] LABS: BANDS 5 % (< 11); DOHLE BODIES 1+; PLATELET CLUMPS SMALL AMT
[2017-01-18 14:36] LABS: ALBUMIN 3.1 GM/DL (3.2-5.2); ALBUMIN/GLOBULIN RATIO 0.67 (1.00-1.93); ALKALINE PHOSPHATASE 70 U/L (45-117); ALT/SGPT 20 U/L (12-78); ANION GAP 6 MEQ/L (8-16); AST/SGOT 14 U/L (15-37); BILIRUBIN,DIRECT 0.1 MG/DL (0.0-0.2); BILIRUBIN,TOTAL 0.5 MG/DL (0.2-1.0); BLOOD UREA NITROGEN 16 MG/DL (7-18); CARBON DIOXIDE LEVEL 27 MEQ/L (21-32); CHLORIDE LEVEL 99 MEQ/L (98-107); CREATININE FOR GFR 0.85 MG/DL (0.70-1.30); GLOMERULAR FILTRATION RATE > 60.0 (>49); GLUCOSE, FASTING 170 MG/DL (80-110); POTASSIUM SERUM 3.8 MEQ/L (3.5-5.1); SODIUM LEVEL 132 MEQ/L (136-145); TOTAL PROTEIN 7.7 GM/DL (6.4-8.2)
[2017-01-18] MEDS ORDERED: ISOVUE-370 76% 100ML VIAL (Q9967) As Ordered ONE (14:41)
--- NOTE | 2017-01-18 15:26 | REP ---
CT of the abdomen and pelvis with IV contrast, without bowel contrast: Comparison is a 2016. Pelvis: There are numerous round low density lesions in the left inguinal area extending into the left femoral and iliac lymph node chain, surrounded by phlegmon. These are likely multiple left iliac, femoral and inguinal suppurative nodes. Previously there was a drainage catheter within the soft tissues of this area. The catheter has been removed. These findings are similar to the comparison study and are not significantly changed. There is no ascites in the pelvis. The right iliac, femoral and inguinal nodes identified previously are no longer present, however, there is phlegmon in the right inguinal area. There is diffuse scrotal wall thickening. The bladder is unremarkable. The prostate is unremarkable. The pelvic bowel loops are unremarkable. Abdomen: The visualized lung mullen are unremarkable. The hepatic parenchyma is homogeneous. There are gallbladder calculi. This is unchanged. The pancreas is of, spleen, adrenals, kidneys and abdominal aorta are unremarkable. The bowel and mesentery are unremarkable. Impression: There is extensive the phlegmon in the left inguinal area with multiple low density foci likely , suppurative nodes. These nodes extend into the femoral and iliac carlos chain. No focal fluid collections are identified to suggest abscess. In the right inguinal area. There is phlegmon The previously identified right inguinal nodes are no longer identified. There is diffuse scrotal wall thickening. There is no ascites in the pelvis. There is cholelithiasis. Signed by Sancho Betancur MD 01/18/2017 03:17 P
[2017-01-18] MEDS ORDERED: DEXTROSE 50% 50 ML SYRINGE IV PRN (18:30)
[2017-01-18] MEDS ORDERED: GLUCOSE 4 GM CHEW TABLET PO PRN (18:30)
[2017-01-18] MEDS ORDERED: GLUCAGON FOR INJ 1 MG VIAL (J1610) SC PRN (18:30)
--- NOTE | 2017-01-18 18:34 | HPEPDOC ---
[facility] Medical History & Physical History and Physical Primary care provider: Dr. Quintana Urologist: Dr. Ro Date of Admission: 01/18/2017 Attending: Dr. Vianca Ng CHIEF COMPLAINT: Left inguinal region swelling/abscess HISTORY OF PRESENT ILLNESS: The patient states that approximately 7 days ago with the drain in his left inguinal region fell out. He recently had a partial penectomy with lymph node resection for penile cancer on 11/03/2016, which is why the drain was there in the first place. He called the office of Dr. Ro and was notified that here he had a follow-up visit today and to just come to the office for that. In the past week he has suffered from fevers, chills, night sweats where he drenches the entire bed sheets, and swelling or erythema of the left inguinal region with extension into the groin and scrotum. He states that he did have some drainage from the previous drain site for a few days, and then just the day before yesterday he was getting into the shower and when he was stepping over the edge of the tub tension was stretched across the drain site, and it popped open spraying pus all over the bathroom. When he was seen and evaluated in the office and Dr. Ro recommended that he proceed directly to the emergency room for a CT scan scan as well as IV antibiotic therapy. ALLERGIES: No known drug allergies CODE STATUS: Full code PAST MEDICAL HISTORY: Diabetes mellitus type 2 Hypertension PAST SURGICAL HISTORY: Partial penectomy as well as inguinal lymph node dissection 11/03/[address] Ro Right hand orthopedic repair SOCIAL HISTORY: He has never smoked, only drinks alcohol occasionally at the holidays, he does not use recreational drugs. 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 FAMILY HISTORY: His father had lung cancer, mother had pituitary cancer, one brother had an MS in his late 50s, another brother had a CABG REVIEW OF SYSTEMS: Constitutional: Patient admits to fevers, chills, night sweats soaking the bed sheets. Denies recent weight gain/loss. HEENT: Patient denies blurred or double vision, transient visual disturbances, postnasal drip, epistaxis, sore throat, difficulty chewing or swallowing food. Cardiovascular: Patient denies chest discomfort/pain, palpitations, exertional dyspnea, orthopnea, claudication. Respiratory: Patient denies dyspnea, wheezing, cough, hemoptysis, sputum production. Gastrointestinal: Patient denies nausea, vomiting, diarrhea, constipation, abdominal pain, melena, hematochezia, hematemesis, jaundice. Genitourinary: He denies any frequency, burning, or any other troubles with urination. He does have significant scrotal edema which she is able to massage out, but it comes back by the next day. Lymphatics: He does have edema of the left lower extremity all the way up to the hip which is been present since his surgery Integument: He does have erythema and induration of the left inguinal region, at the previous drain site he was previously draining pus and serosanguineous fluid, however it is not draining right now. PHYSICAL EXAMINATION: Vitals: Temperature 99.5, pulse 104, respiratory rate 18, blood pressure 132/72 , pulse oximetry 100% on room air General: Awake, alert, oriented 3. He appears to be in no acute distress, although he did say he had chills earlier HEENT: Head normocephalic atraumatic, pupils equally reactive to light and accommodation, conjunctiva are pink, sclera are nonicteric, buccal mucosa is pink and moist with no lesions in the oropharynx. Hearing is grossly intact to conversation. Respiratory: Clear to auscultation bilaterally with no wheezes, rales, or rhonchi. Cardiovascular: Regular rate and rhythm, with no rubs, gallops, or murmur. Abdomen: Soft, nontender, nondistended, no hepatosplenomegaly appreciated. Bowel sounds present. Extremities: 2+ pulses in the radial and dorsalis pedis bilaterally. Left lower extremity does have 1-2+ pitting edema up to the level of his hip. The previous site of left inguinal drain does have surrounding erythema extending partially up onto the abdomen by a few inches, and all the way over to the right inguinal fold. Right now there is only very minimal serosanguineous drainage from the left inguinal drain site. Genitourinary: The patient is status post penectomy, he has a large amount of fluid/edema in the scrotum, he does not have any open wounds or sores on the scrotum itself. IMAGING: CT of the abdomen and pelvis with IV contrast reveals extensive phlegmon in the left inguinal area with multiple low density foci which are likely suppurative nodes. No focal fluid collections are identified to suggest abscess. In the right inguinal area there is a phlegmon as well. He does have diffuse scrotal wall thickening without ascites in the pelvis. ASSESSMENT: 1. Postsurgical complication. 2. Cellulitis of the left inguinal region, no abscess 3. Diabetes mellitus type 2 4. Hypertension PLAN: We will admit the patient to [facility], he will be started on empiric antibiotics of vancomycin and Zosyn to cover both for cellulitis, as well as any gram- negative bacteria that may be present from the urinary or gastrointestinal tract. Tylenol for fevers and pain. He has already been bolused with liter of fluid, he does not appear to be septic at this time, pressures are good, and his lactic acid is negative, and he only has a minimal leukocytosis, therefore I will not order any additional fluids at this time, we can recheck him in the morning. His home oral diabetic medications will be discontinued and we will continue him on sliding scale insulin for his diabetes while inpatient given that he is already received IV contrast, and may need additional imaging studies. Dr. Ro of urology has been consulted to help manage this post- surgical complication. My preceptor for this patient encounter was physically present in the building during the encounter and was fully available. As needed, all aspects of the patient interview, examination, medical decision making process, and medical care plan development were reviewed and approved by the preceptor. Preceptor is aware and concurs with the plan as stated in the body of this note and will attest to such by his/her cosignature. Vital Signs Vital Signs Date Time Temp Pulse Resp B/P (MAP) Pulse Ox O2 Delivery O2 Flow Rate FiO2 01/18/17 15:04 99.5 104 18 132/72 (92) 100 01/18/17 12:31 Room Air Laboratory Data Labs 24H Laboratory Tests 2 01/18/17 13:40: Nucleated Red Blood Cells % (auto) 0.0, Neutrophils 80H, Band Neutrophils 5, Lymphocytes (Manual) 15L, Dohle Bodies 1+, Platelet Estimate NORMAL, Clumped Platelets SMALL AMT, Anion Gap 6L, Glomerular Filtration Rate > 60.0, Calcium Level 10.0, Aspartate Amino Transf (AST/SGOT) 14L, Alanine Aminotransferase (ALT /SGPT) 20, Alkaline Phosphatase 70, Total Bilirubin 0.5, Direct Bilirubin 0.1, C -Reactive Protein, Quantitative 26.50H, Total Protein 7.7, Albumin 3.1L, Albumin /Globulin Ratio 0.67L 01/18/17 13:42: Urine Appearance HAZY, Urine Color YELLOW, Urine pH 6.0, Urine Specific [place] 1.036, Urine Protein NEGATIVE, Urine Glucose (UA) 3+H, Urine Ketones NEGATIVE, Urine Urobilinogen 0.2, Urine Bilirubin NEGATIVE, Urine Leukocyte Esterase NEGATIVE, Urine Blood NEGATIVE, Urine Nitrite NEGATIVE, Urine WBC (Auto) 11H, Urine RBC (Auto) 33H, Urine Hyaline Casts (Auto) 0, Urine Bacteria (Auto) NEGATIVE, Urine Squamous Epithelial Cells 0, Urine Mucus (Auto) SMALL, Urine Yeast-Like Cells (Auto) LARGEH, Urine Sperm (Auto) , Lactic Acid Level 1.4 CBC/BMP Laboratory Tests 01/18/17 13:40 Red Blood Count 3.61 L, Mean Corpuscular Volume 83.7, Mean Corpuscular Hemoglobin 27.1, Mean Corpuscular Hemoglobin Concent 32.5, Red Cell Distribution Width 15.1 H Microbiology Microbiology 01/18/17 Blood Culture, Received Pending 01/18/17 Blood Culture, Received Pending 01/18/17 Urine Culture, Received Pending 01/18/17 Gram Stain - Final, Resulted 01/18/17 Wound Culture, Resulted Pending Home Medications Scheduled (Glyxambi 25-5 mg) 1 Tab Tab, 1 TAB PO DAILY Cefdinir (Cefdinir) 300 Mg Cap, 300 MG PO BID Cholecalciferol (Vitamin D3) 1,000 Unit Tab, 1,000 UNIT PO DAILY Lisinopril (Lisinopril) 10 Mg Tab, 10 MG PO DAILY Metformin Hydrochloride (Metformin HCl ER) 750 Mg Tab, 1,500 MG PO QPM Nystatin (Nystop Powder) 1 Dose/15 Gm Powd, 0 DOSE TOP BID Allergies Coded Allergies: No Known Allergies (Unverified , 11/03/16) Attending Note Attending Note I have seen and examined the above patient and agree with the above documentation. LIS HEDRICK DO Jan 18, 2017 18:34 VIANCA NG Jan 29, 2017 17:22
[2017-01-18 22:15] VITALS: BP 144/69
[2017-01-18] MEDS: HumaLOG INSULIN (NovoLOG) PER UNIT SC SCH (22:47)
[2017-01-19] VITALS: BP 122/75
[2017-01-19] MEDS: PIPERACILLIN/TAZOBACTAM SOD 3.375 GM in D5W 50 ML IV SCH ×5 (00:04→23:57)
[2017-01-19] MEDS: ACETAMINOPHEN TAB 650MG DOSE (2X325MG) PO PRN ×2 (00:24→20:19)
[2017-01-19] MEDS: VANCOMYCIN HCL 1,000 MG, VIAL MATE ADAPTER 1 EACH in D5W 250 ML IV SCH ×2 (01:54→14:18)
[2017-01-19 04:00] VITALS: BP 113/60
[2017-01-19 07:01] LABS: MEAN CORPUSCULAR HEMOGLOBIN 27.4 pg (27.0-33.0); MEAN CORPUSCULAR HGB CONC 32.8 g/dl (32.0-36.5); MEAN CORPUSCULAR VOLUME 83.4 fl (80.0-96.0); RED CELL DISTRIBUTION WIDTH 15.1 % (11.5-14.5); WHITE BLOOD COUNT 7.2 10^3/uL (4.0-10.0)
[2017-01-19 07:42] LABS: ANION GAP 7 MEQ/L (8-16); BLOOD UREA NITROGEN 16 MG/DL (7-18); CALCIUM LEVEL 9.6 MG/DL (8.8-10.2); CARBON DIOXIDE LEVEL 28 MEQ/L (21-32); CHLORIDE LEVEL 101 MEQ/L (98-107); CREATININE FOR GFR 0.77 MG/DL (0.70-1.30); GLOMERULAR FILTRATION RATE > 60.0 (>49); GLUCOSE, FASTING 123 MG/DL (80-110); POTASSIUM SERUM 3.9 MEQ/L (3.5-5.1); SODIUM LEVEL 136 MEQ/L (136-145)
--- NOTE | 2017-01-19 07:45 | REP ---
The left lower extremity deep vein duplex ultrasound: The deep veins demonstrate normal compression, normal Doppler color flow and normal Doppler waveforms with respiration augmentation at multiple levels from the popliteal vein to the common femoral vein. The patient reportedly had a drainage tube that dislodged on Wednesday (4 days ago). There is a large complex fluid collection in the left thigh measuring 5.6 x 3.4 per a 4.0 cm. Signed by Sancho Betancur MD 01/19/2017 07:36 A
[2017-01-19] MEDS: HumaLOG INSULIN (NovoLOG) PER UNIT SC SCH ×4 (07:58→20:18)
[2017-01-19 08:00] VITALS: BP 121/64
[2017-01-19] MEDS: ENOXAPARIN 40 MG/0.4 ML SYRINGE (J1650) SC SCH (10:41)
[2017-01-19] MEDS: VITAMIN D 1,000 INTERNATIONAL UNITS TABLET PO SCH (10:41)
[2017-01-19] MEDS: LISINOPRIL 10 MG TAB PO SCH (10:42)
[2017-01-19] MEDS: NYSTATIN 100,000 UNITS/GM TOPICAL PWD 15 GM TOP SCH ×2 (10:42→20:15)
--- NOTE | 2017-01-19 10:56 | IPNPDOC ---
Text Note Date of Service The patient was seen on 01/19/17. NOTE Hospitalist Progress Note Subjective: Mr. Fang is feeling well this morning, he did spike a low-grade temperature last night which is since resolved. He does believe that his fever and chills are slightly improved from prior. Otherwise, the redness and swelling of his groin and inguinal area has remained approximately the same, he still continues to have a significant amount of scrotal edema. Otherwise, he does not have any additional questions or complaints at this time. Objective: General: Awake, alert, oriented 3. He is in no acute distress. He is in a good mood this morning. HEENT: Head normocephalic, sclera are nonicteric. Hearing is grossly intact to conversation. Respiratory: Clear to auscultation bilaterally with no wheezes, rales, or rhonchi. Cardiovascular: Regular rate and rhythm, with no rubs, gallops, or murmur. Abdomen: Soft, nontender, nondistended, no hepatosplenomegaly appreciated. Bowel sounds present. Genitourinary: He still continues to have a significant amount of scrotal edema with surrounding erythema. He does have some purulent drainage from the previous site of the left inguinal drain, however, no additional purulent material was able to be expressed this morning Extremities: 2+ pulses in the radial and dorsalis pedis bilaterally. No evidence of clubbing or cyanosis. Assessment/Plan: 1. Postsurgical complication. Left inguinal drain having fallen out prematurely. Dr. Ro was already contacted last night, he agreed to come see the patient, it is likely that he will come this afternoon when he is done with clinic. Awaiting management per his recommendations 2. Cellulitis of the left inguinal region, no abscess. Leukocytosis and CRP is trending down, all cultures are still pending. We will continue with vancomycin and Zosyn. He did have some increased noted in his urine, I suspect this may be a contaminant, therefore we will treat his groin with nystatin powder twice a day. Leukocytosis has resolved, CRP remains elevated but improved from yesterday. 3. Diabetes mellitus type 2. We'll continue with sliding scale insulin while inpatient. Oral meds continue to be on hold. 4. Hypertension. Continues to be within acceptable limits, continue with lisinopril daily. My preceptor for this patient encounter was physically present in the building during the encounter and was fully available. As needed, all aspects of the patient interview, examination, medical decision making process, and medical care plan development were reviewed and approved by the preceptor. Preceptor is aware and concurs with the plan as stated in the body of this note and will attest to such by his/her cosignature. VS,Fishbone, I+O VS, Fishbone, I+O Laboratory Tests 01/18/17 13:40 Red Blood Count 3.61 L, Mean Corpuscular Volume 83.7, Mean Corpuscular Hemoglobin 27.1, Mean Corpuscular Hemoglobin Concent 32.5, Red Cell Distribution Width 15.1 H 01/19/17 06:46 Red Blood Count 3.07 L, Mean Corpuscular Volume 83.4, Mean Corpuscular Hemoglobin 27.4, Mean Corpuscular Hemoglobin Concent 32.8, Red Cell Distribution Width 15.1 H, Calcium Level 9.6 Vital Signs Date Time Temp Pulse Resp B/P (MAP) Pulse Ox O2 Delivery O2 Flow Rate FiO2 01/19/17 10:42 121/64 01/19/17 08:00 98.3 103 20 97 01/19/17 04:00 Room Air I&O- Last 24 Hours up to 6 AM 01/20/17 05:59 Intake Total 290 ml Output Total 300 ml Balance -10 ml LIS HEDRICK DO Jan 19, 2017 10:56
[2017-01-19 20:00] VITALS: BP 127/68
[2017-01-20] VITALS: BP 123/65
[2017-01-20] MEDS: VANCOMYCIN HCL 1,000 MG, VIAL MATE ADAPTER 1 EACH in D5W 250 ML IV SCH (01:32)
[2017-01-20 04:00] VITALS: BP 117/69
[2017-01-20] MEDS: PIPERACILLIN/TAZOBACTAM SOD 3.375 GM in D5W 50 ML IV SCH (06:45)
[2017-01-20 07:05] LABS: MEAN CORPUSCULAR HEMOGLOBIN 26.9 pg (27.0-33.0); MEAN CORPUSCULAR HGB CONC 32.1 g/dl (32.0-36.5); MEAN CORPUSCULAR VOLUME 83.8 fl (80.0-96.0); RED CELL DISTRIBUTION WIDTH 15.1 % (11.5-14.5); WHITE BLOOD COUNT 5.5 10^3/uL (4.0-10.0)
[2017-01-20 07:29] LABS: ANION GAP 7 MEQ/L (8-16); BLOOD UREA NITROGEN 17 MG/DL (7-18); CALCIUM LEVEL 9.7 MG/DL (8.8-10.2); CARBON DIOXIDE LEVEL 28 MEQ/L (21-32); CHLORIDE LEVEL 101 MEQ/L (98-107); CREATININE FOR GFR 0.74 MG/DL (0.70-1.30); GLOMERULAR FILTRATION RATE > 60.0 (>49); GLUCOSE, FASTING 127 MG/DL (80-110); MAGNESIUM LEVEL 1.9 MG/DL (1.8-2.4); POTASSIUM SERUM 3.7 MEQ/L (3.5-5.1); SODIUM LEVEL 136 MEQ/L (136-145)
[2017-01-20 08:00] VITALS: BP 130/61
[2017-01-20] MEDS: HumaLOG INSULIN (NovoLOG) PER UNIT SC SCH ×4 (08:40→20:54)
[2017-01-20] MEDS: VITAMIN D 1,000 INTERNATIONAL UNITS TABLET PO SCH (08:42)
[2017-01-20] MEDS: ENOXAPARIN 40 MG/0.4 ML SYRINGE (J1650) SC SCH (08:42)
[2017-01-20] MEDS: LISINOPRIL 10 MG TAB PO SCH (08:44)
[2017-01-20] MEDS: NYSTATIN 100,000 UNITS/GM TOPICAL PWD 15 GM TOP SCH ×2 (08:44→21:14)
[2017-01-20] MEDS: cefTRIAXone SOD 2 GM in D5W 50 ML IV SCH (10:05)
[2017-01-20 16:00] VITALS: BP 135/63
[2017-01-20 20:00] VITALS: BP 140/68
--- NOTE | 2017-01-20 20:20 | IPNPDOC ---
Date Seen The patient was seen on 01/20/17. Progress Note Hospitalist Progress Note Subjective: Mr. Fang is in good spirits this morning. He did once again spike a low- grade temperature last night. He does not have any pain, he believes that the erythema is improved today. He does feel that the edema in the scrotum is also slightly improved, he feels that his scrotum his chest is large, but is much more soft, and the nystatin powder has helped significantly with the chafing and discomfort. Otherwise, he has no additional complaints, and the remainder of his review of systems is negative. Objective: General: Awake, alert, oriented 3. He is in no acute distress. He is in a good mood this morning. HEENT: Head normocephalic, sclera are nonicteric. Hearing is grossly intact to conversation. Respiratory: Clear to auscultation bilaterally with no wheezes, rales, or rhonchi. Cardiovascular: Regular rate and rhythm, with no rubs, gallops, or murmur. Abdomen: Soft, nontender, nondistended, no hepatosplenomegaly appreciated. Bowel sounds present. Genitourinary: He still continues to have a significant amount of scrotal edema however the surrounding erythema does appear improved today. He only has minimal purulent drainage from the previous site of the left inguinal drain which is on the bandage, I cannot express any purulence. The erythema which previously extended onto his abdomen and across groin over to the right inguinal fold has receded some and is only located within 1-2 inches of the left inguinal fold extending downward to the drain site. Extremities: 2+ pulses in the radial and dorsalis pedis bilaterally. No evidence of clubbing or cyanosis. Assessment/Plan: 1. Postsurgical complication. Left inguinal drain having fallen out prematurely. Dr. Ro apparently did not stop by. 2. Cellulitis of the left inguinal region, no abscess. Leukocytosis continues to be within normal range, CRP continues to trend downward. The wound cultures come back with group B strep, his antibiotic has been narrowed to Rocephin. If he continues to improve both clinically, and with a downward trending CRP, I expect that he may be a candidate for discharge tomorrow. 3. Diabetes mellitus type 2. We'll continue with sliding scale insulin while inpatient. Oral meds continue to be on hold. 4. Hypertension. Continues to be within acceptable limits, continue with lisinopril daily. My preceptor for this patient encounter was physically present in the building during the encounter and was fully available. As needed, all aspects of the patient interview, examination, medical decision making process, and medical care plan development were reviewed and approved by the preceptor. Preceptor is aware and concurs with the plan as stated in the body of this note and will attest to such by his/her cosignature. VS, I&O, 24H, Fishbone Vital Signs/I&O Vital Signs Date Time Temp Pulse Resp B/P (MAP) Pulse Ox O2 Delivery O2 Flow Rate FiO2 01/20/17 16:00 99.7 96 18 135/63 (87) 99 Room Air I&O- Last 24 Hours up to 6 AM 01/21/17 06:00 Intake Total 1330 ml Output Total 1800 ml Balance -470 ml Laboratory Data 24H LABS Laboratory Tests 2 01/19/17 20:17: Bedside Glucose (Misc Panel) 239H 01/20/17 06:41: Anion Gap 7L, Glomerular Filtration Rate > 60.0, Blood Urea Nitrogen 17, Creatinine 0.74, Sodium Level 136, Potassium Level 3.7, Chloride Level 101, Carbon Dioxide Level 28, Calcium Level 9.7, Magnesium Level 1.9, C-Reactive Protein, Quantitative 16.10H 01/20/17 11:35: Bedside Glucose (Misc Panel) 184H 01/20/17 16:55: Bedside Glucose (Misc Panel) 183H CBC/BMP Laboratory Tests 01/20/17 06:41 Red Blood Count 3.20 L, Mean Corpuscular Volume 83.8, Mean Corpuscular Hemoglobin 26.9 L, Mean Corpuscular Hemoglobin Concent 32.1, Red Cell Distribution Width 15.1 H, Calcium Level 9.7 Microbiology Microbiology 01/18/17 Blood Culture - Preliminary, Resulted No Growth after 48 hours. All Specime... 01/18/17 Blood Culture - Preliminary, Resulted No Growth after 48 hours. All Specime... 01/18/17 Urine Culture - Final, Complete 01/18/17 Gram Stain - Final, Complete 01/18/17 Wound Culture - Final, Complete Strep Agalactiae Group B LIS HEDRICK DO Jan 20, 2017 20:20
[2017-01-20] MEDS: ACETAMINOPHEN TAB 650MG DOSE (2X325MG) PO PRN (21:13)
[2017-01-21 02:55] VITALS: BP 149/72
[2017-01-21 07:28] LABS: MEAN CORPUSCULAR HEMOGLOBIN 26.9 pg (27.0-33.0); MEAN CORPUSCULAR HGB CONC 32.2 g/dl (32.0-36.5); MEAN CORPUSCULAR VOLUME 83.4 fl (80.0-96.0); WHITE BLOOD COUNT 8.5 10^3/uL (4.0-10.0)
[2017-01-21 07:37] LABS: ANION GAP 7 MEQ/L (8-16); BLOOD UREA NITROGEN 14 MG/DL (7-18); CALCIUM LEVEL 9.8 MG/DL (8.8-10.2); CARBON DIOXIDE LEVEL 29 MEQ/L (21-32); CHLORIDE LEVEL 99 MEQ/L (98-107); CREATININE FOR GFR 0.66 MG/DL (0.70-1.30); GLOMERULAR FILTRATION RATE > 60.0 (>49); GLUCOSE, FASTING 123 MG/DL (80-110); MAGNESIUM LEVEL 1.8 MG/DL (1.8-2.4); POTASSIUM SERUM 3.9 MEQ/L (3.5-5.1); SODIUM LEVEL 135 MEQ/L (136-145)
[2017-01-21] MEDS ORDERED: CEFD1CAP8 PO (08:07)
[2017-01-21 08:15] VITALS: BP 149/70
[2017-01-21] MEDS: VITAMIN D 1,000 INTERNATIONAL UNITS TABLET PO SCH (08:21)
[2017-01-21] MEDS: HumaLOG INSULIN (NovoLOG) PER UNIT SC SCH (08:21)
[2017-01-21] MEDS: NYSTATIN 100,000 UNITS/GM TOPICAL PWD 15 GM TOP SCH (08:22)
[2017-01-21 08:25] VITALS: BP 149/70
[2017-01-21] MEDS: ENOXAPARIN 40 MG/0.4 ML SYRINGE (J1650) SC SCH (08:25)
[2017-01-21] MEDS: LISINOPRIL 10 MG TAB PO SCH (08:25)
[2017-01-21] MEDS ORDERED: NYST10PW TOP (08:28)
[2017-01-21] MEDS ORDERED: SODIUM CHLORIDE 0.9% INJ 10 ML SYR IV PRN (08:30)
[2017-01-21] MEDS ORDERED: SODIUM CHLORIDE 0.9% INJ 10 ML SYR IV SCH (09:00)
[2017-01-21] MEDS: cefTRIAXone SOD 2 GM in D5W 50 ML IV SCH (10:47)
--- NOTE | 2017-01-21 21:03 | DS.PDOC ---
Discharge Summary General Date of Admission Jan 18, 2017 at 20:00 Date of Discharge 01/21/2017 Discharge Summary PCP: Dr. Quintana Urologist: Dr. Ro Oncologist: Dr. Dean ATTENDING AT TIME OF DISCHARGE: Dr. Sahra Wyman DISCHARGE DIAGNOS(E)S: 1. Postsurgical complication of left inguinal drain falling out prematurely 2. Cellulitis of the left inguinal region, no abscess 3. Diabetes mellitus type 2 4. Hypertension HPI & HOSPITAL COURSE: Mr. 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 A drain was left in place in the left inguinal region after the surgery, however this fell out prematurely. This subsequently became infected, he was treated outpatient with Cipro however his cellulitis did not improve, therefore he was sent to the emergency department by his urologist Dr. Ro. He was initially empirically treated with vancomycin and Zosyn and when cultures returned he was narrowed to Rocephin, and then ultimately sent home on Omnicef. During his hospitalization the surrounding erythema and edema in the left inguinal region improved, his leukocytosis resolved while inpatient, his CRP was trending down every day. On today the day of discharge he has essentially no pain, and only minimal serosanguineous drainage from the previous site of the left inguinal drain. He does appear to be on appropriate antibiotic coverage, and he is stable for discharge at this time. PHYSICAL EXAMINATION ON DISCHARGE: General: Awake, alert, oriented 3. He appears to be in no acute distress, HEENT: Head normocephalic atraumatic, pupils equally reactive to light and accommodation, conjunctiva are pink, sclera are nonicteric, buccal mucosa is pink and moist with no lesions in the oropharynx. Hearing is grossly intact to conversation. Respiratory: Clear to auscultation bilaterally with no wheezes, rales, or rhonchi. Cardiovascular: Regular rate and rhythm, with no rubs, gallops, or murmur. Abdomen: Soft, nontender, nondistended, no hepatosplenomegaly appreciated. Bowel sounds present. Extremities: 2+ pulses in the radial and dorsalis pedis bilaterally. Left lower extremity continues to have 1+ pitting edema up to the level of his hip. The previous site of left inguinal drain only has minimal surrounding erythema, there is only a minimal amount of serosanguineous drainage on the bandage this morning. Genitourinary: The patient is status post penectomy, while the scrotum still does have a large amount of edema, the induration has improved greatly. DISPOSITION: Home DISCHARGE INSTRUCTIONS: Follow-up with primary care provider Dr. Quintana within 7-10 days, as well as follow-up with urologist Dr. Ro in 2 weeks. If symptoms return, or if you experience worsening of your symptoms, please call your doctor or return to the emergency department. PLEASE CC: Dr. Mariano Dean My preceptor for this patient encounter was physically present in the building during the encounter and was fully available. As needed, all aspects of the patient interview, examination, medical decision making process, and medical care plan development were reviewed and approved by the preceptor. Preceptor is aware and concurs with the plan as stated in the body of this note and will attest to such by his/her cosignature. Vital Signs/I&Os Vital Signs Date Time Temp Pulse Resp B/P (MAP) Pulse Ox O2 Delivery O2 Flow Rate FiO2 01/21/17 08:25 149/70 01/21/17 08:15 99.3 101 16 98 Room Air I&O- Last 24 Hours up to 6 AM 01/22/17 06:00 Intake Total 290 ml Output Total 550 ml Balance -260 ml Laboratory Data Labs 24H Laboratory Tests 2 01/21/17 07:02: Anion Gap 7L, Glomerular Filtration Rate > 60.0, Blood Urea Nitrogen 14, Creatinine 0.66L, Sodium Level 135L, Potassium Level 3.9, Chloride Level 99, Carbon Dioxide Level 29, Calcium Level 9.8, Magnesium Level 1.8, C-Reactive Protein, Quantitative 15.30H CBC/BMP Laboratory Tests 01/21/17 07:02 Red Blood Count 3.61 L, Mean Corpuscular Volume 83.4, Mean Corpuscular Hemoglobin 26.9 L, Mean Corpuscular Hemoglobin Concent 32.2, Red Cell Distribution Width 15.0 H, Calcium Level 9.8 Microbiology Microbiology 01/18/17 Blood Culture - Preliminary, Resulted No Growth after 72 hours. All specime... 01/18/17 Blood Culture - Preliminary, Resulted No Growth after 72 hours. All specime... 10/2/17 Urine Culture - Final, Complete 01/18/17 Gram Stain - Final, Complete 01/18/17 Wound Culture - Final, Complete Strep Agalactiae Group B Discharge Medications Scheduled (Glyxambi 25-5 mg) 1 Tab Tab, 1 TAB PO DAILY, (Reported) Cefdinir (Cefdinir) 300 Mg Cap, 300 MG PO BID Cholecalciferol (Vitamin D3) 1,000 Unit Tab, 1,000 UNIT PO DAILY, (Reported) Lisinopril (Lisinopril) 10 Mg Tab, 10 MG PO DAILY, (Reported) Metformin Hydrochloride (Metformin HCl ER) 750 Mg Tab, 1,500 MG PO QPM, ( Reported) Nystatin (Nystop Powder) 1 Dose/15 Gm Powd, 0 DOSE TOP BID Allergies Coded Allergies: No Known Allergies (Unverified , 11/03/16) LIS HEDRICK DO Jan 21, 2017 21:03
== END 2017-01-21 12:25 | disposition home or self-care (01) | DRG 699 ==
LOC: M ED 12:31 → M ED INP 20:00 → M PED 22:19
PROVIDERS: ADMIT Hospitalist; ATTEND Internal Medicine Nephrology
DX: N99.89 Other postprocedural complications and disorders of genitourinary system (principal); L03.314 Cellulitis of groin; T81.4XXA Infection following a procedure, initial encounter; E11.9 Type 2 diabetes mellitus without complications; I10 Essential (primary) hypertension; Z79.84 Long term (current) use of oral hypoglycemic drugs; Z79.899 Other long term (current) drug therapy; B95.1 Streptococcus, group B, as the cause of diseases classified elsewhere

== ENCOUNTER → 2017-02-04 | Outpatient (REF) | payer OTHER ==
[~2017-02-04] MED LIST changes: +CEFD1CAP8 PO; +NYST10PW TOP
== END ==
LOC: M SMT 13:02
PROVIDERS: ATTEND Nurse Practitioner Women's Health
DX: L03.116 Cellulitis of left lower limb (principal)

== ENCOUNTER → 2017-03-15 | Outpatient (CLI) | payer OTHER ==
[2017-03-15 15:11] LABS: ANION GAP 7 MEQ/L (8-16); BLOOD UREA NITROGEN 22 MG/DL (7-18); CALCIUM LEVEL 11.1 MG/DL (8.8-10.2); CARBON DIOXIDE LEVEL 29 MEQ/L (21-32); CHLORIDE LEVEL 104 MEQ/L (98-107); CREATININE FOR GFR 0.69 MG/DL (0.70-1.30); GLOMERULAR FILTRATION RATE > 60.0 (>49); GLUCOSE, FASTING 112 MG/DL (80-110); POTASSIUM SERUM 4.7 MEQ/L (3.5-5.1); SODIUM LEVEL 140 MEQ/L (136-145)
== END ==
LOC: M SMT 09:29
PROVIDERS: ATTEND Nurse Practitioner Women's Health
DX: I89.8 Other specified noninfective disorders of lymphatic vessels and lymph nodes (principal)

== ENCOUNTER 2017-03-17 09:49 | Outpatient (RCR) | payer OTHER | END 2017-03-18 | LOC: M PT 09:49 | PROVIDERS: ATTEND Surgery | DX: Z51.89 Encounter for other specified aftercare (principal); C60.9 Malignant neoplasm of penis, unspecified ==

== ENCOUNTER → 2017-03-19 | Outpatient (CLI) | payer OTHER ==
[~2017-03-19] MED LIST changes: +ISOVUE-370 76% 100ML VIAL (Q9967) As Ordered ONE
--- NOTE | 2017-03-22 07:12 | REP ---
Clinical: History of penile carcinoma. Technique: Axial contrast enhanced images from the lung bases to the pubic symphysis using 100 ml Isovue 370 intravenous contrast material along with precontrast and delayed images of the abdomen as well as coronal and sagittal re-formations. Comparison: 01/18/2017, 12/17/2016. Findings: Lung bases are clear. Visualized heart and pericardium are normal. Liver, spleen, pancreas, bilateral adrenal glands and kidneys are essentially normal. A small stable 1 cm left renal cyst is identified along with mild chronic perinephric stranding. Cholelithiasis noted without evidence for acute cholecystitis. The enteric system is without obstruction or acute inflammatory process and a normal terminal ileum and appendix are identified in the right lower quadrant. Pelvis demonstrates relatively normal appearance to the bladder and prostate gland. There is no evidence for solitary mass/metastatic focus or adenopathy extending into the abdomen or currently within the pelvis above the level of the abnormal lymph nodes at the left iliac level. Extensive subcutaneous edema and infiltration is appreciated throughout the pelvis (left greater than right) along with significant edema to the scrotum and bilateral hydroceles. Rim enhancing suppurative lymph nodes in the left groin extend along the iliofemoral chain and left pelvic sidewall to the level of the bifurcation of common iliac artery. Lymph nodes have increased in size from prior examination measuring roughly 8.7 cm maximal diameter in the left groin and previously measuring approximately 7.8 cm at the same level. Lymph nodes along the left pelvic sidewall now measure roughly 8.7 x 3.4 cm and previously measured 7.0 x 2.7 cm at the same level. Findings in the groin may reflect transformation to phlegmon/abscess and correlation is recommended. Smaller irregular enhancing lymph nodes are also identified in the right groin with a complex ill-defined collection which remains essentially stable. The subcutaneous edema is noted to extend along the visualized left lower extremity highly consistent with lymphatic obstruction. Impression: 1. Extensive changes in the pelvis, groin and visualized left lower extremity including enlarged enhancing left pelvic adenopathy with possible forming phlegmonous changes/abscess. Diffuse subcutaneous edema within the pelvis and left lower extremity as well as edema throughout the scrotum is consistent with lymphatic obstruction. 2. Cholelithiasis. 3. No obvious metastasis or mass lesion within the lung bases or abdomen. Signed by Juan Ramon Hernandez MD 03/19/2017 03:44 P
== END ==
LOC: M RAD 14:36
PROVIDERS: ATTEND Nurse Practitioner Women's Health
DX: C60.9 Malignant neoplasm of penis, unspecified (principal); I89.8 Other specified noninfective disorders of lymphatic vessels and lymph nodes

== ENCOUNTER 2017-03-22 08:24 | Outpatient (RCR) | payer OTHER | END 2017-04-18 | LOC: M PT 08:24 | DX: Z51.89 Encounter for other specified aftercare (principal); I89.0 Lymphedema, not elsewhere classified; C60.9 Malignant neoplasm of penis, unspecified | CPT/HCPCS: 97140 ==

== ENCOUNTER → 2017-03-22 | Outpatient (CLI) | payer OTHER ==
[~2017-03-22] MED LIST changes: -ISOVUE-370 76% 100ML VIAL (Q9967) As Ordered ONE
[2017-03-22 14:19] LABS: ANION GAP 7 MEQ/L (8-16); BLOOD UREA NITROGEN 21 MG/DL (7-18); CALCIUM LEVEL 11.5 MG/DL (8.8-10.2); CARBON DIOXIDE LEVEL 30 MEQ/L (21-32); CHLORIDE LEVEL 103 MEQ/L (98-107); CREATININE FOR GFR 0.84 MG/DL (0.70-1.30); GLOMERULAR FILTRATION RATE > 60.0 (>49); GLUCOSE, FASTING 137 MG/DL (80-110); POTASSIUM SERUM 4.9 MEQ/L (3.5-5.1); SODIUM LEVEL 140 MEQ/L (136-145)
== END ==
LOC: M SMT 10:26
PROVIDERS: ATTEND Nurse Practitioner Women's Health
DX: I89.8 Other specified noninfective disorders of lymphatic vessels and lymph nodes (principal)

== ENCOUNTER → 2017-03-29 | Outpatient (CLI) | payer OTHER ==
[2017-03-29 12:32] LABS: ANION GAP 8 MEQ/L (8-16); BLOOD UREA NITROGEN 23 MG/DL (7-18); CARBON DIOXIDE LEVEL 28 MEQ/L (21-32); CHLORIDE LEVEL 100 MEQ/L (98-107); CREATININE FOR GFR 0.89 MG/DL (0.70-1.30); GLOMERULAR FILTRATION RATE > 60.0 (>49); GLUCOSE, FASTING 263 MG/DL (80-110); POTASSIUM SERUM 4.6 MEQ/L (3.5-5.1); SODIUM LEVEL 136 MEQ/L (136-145)
== END ==
LOC: M SMT 08:12
PROVIDERS: ATTEND Nurse Practitioner Women's Health
DX: I89.8 Other specified noninfective disorders of lymphatic vessels and lymph nodes (principal)

== ENCOUNTER → 2017-04-16 | Outpatient (CLI) | payer OTHER ==
[2017-04-16 13:15] LABS: YEAST LIKE CELL URINE AUTO LARGE
[2017-04-16 17:51] LABS: MEAN CORPUSCULAR HEMOGLOBIN 27.3 pg (27.0-33.0); MEAN CORPUSCULAR HGB CONC 31.4 g/dl (32.0-36.5); MEAN CORPUSCULAR VOLUME 86.7 fl (80.0-96.0); PLATELET COUNT, AUTOMATED 220 10^3/uL (150-450); RED CELL DISTRIBUTION WIDTH 14.8 % (11.5-14.5); WHITE BLOOD COUNT 7.8 10^3/uL (4.0-10.0)
[2017-04-16 18:08] LABS: INR 0.77
[2017-04-16 18:25] LABS: ANION GAP 6 MEQ/L (8-16); BLOOD UREA NITROGEN 28 MG/DL (7-18); CALCIUM LEVEL 12.4 MG/DL (8.8-10.2); CARBON DIOXIDE LEVEL 30 MEQ/L (21-32); CHLORIDE LEVEL 101 MEQ/L (98-107); CREATININE FOR GFR 1.02 MG/DL (0.70-1.30); GLOMERULAR FILTRATION RATE > 60.0 (>49); GLUCOSE, FASTING 166 MG/DL (80-110); POTASSIUM SERUM 4.3 MEQ/L (3.5-5.1); SODIUM LEVEL 137 MEQ/L (136-145)
== END ==
LOC: M SMT 10:53
DX: Z01.818 Encounter for other preprocedural examination (principal); R59.0 Localized enlarged lymph nodes; Z85.49 Personal history of malignant neoplasm of other male genital organs
CPT/HCPCS: 80048

== ENCOUNTER 2017-04-21 08:11 | Outpatient (RCR) | payer OTHER | END 2017-05-19 | LOC: M PT 08:11 | DX: Z51.89 Encounter for other specified aftercare (principal); C60.9 Malignant neoplasm of penis, unspecified | CPT/HCPCS: 97140 ==

== ENCOUNTER 2017-04-29 11:28 | Inpatient (IN) | payer OTHER ==
[2017-04-29] MEDS: NS 1,000 ML IV ×2 (12:30→15:30)
[2017-04-29 12:33] LABS: BASO % 0.1 % (0.0-1.0); EOS # 0.1 10^3/uL (0.0-0.50); EOS % 1.1 % (0.0-3.0); HEMATOCRIT 27.1 % (42.0-52.0); HEMOGLOBIN 9.3 g/dl (14.0-18.0); IMMATURE GRANULOCYTE # 0.1 10^3/uL (0-0); IMMATURE GRANULOCYTE % 1.6 % (0-0); LYMPH # 0.6 10^3/uL (1.5-4.5); LYMPH % 6.6 % (24.0-44.0); MEAN CORPUSCULAR HEMOGLOBIN 27.8 pg (27.0-33.0); MEAN CORPUSCULAR HGB CONC 34.3 g/dl (32.0-36.5); MEAN CORPUSCULAR VOLUME 81.1 fl (80.0-96.0); MONO % 12.1 % (0.0-5.0); NEUTROPHILS # 6.6 10^3/uL (1.8-7.7); NEUTROPHILS % 78.5 % (36.0-66.0); PLATELET COUNT, AUTOMATED 188 10^3/uL (150-450); RED BLOOD COUNT 3.34 10^6/uL (4.30-6.10); RED CELL DISTRIBUTION WIDTH 13.2 % (11.5-14.5); WHITE BLOOD COUNT 8.3 10^3/uL (4.0-10.0)
[2017-04-29 13:06] LABS: FREE THYROXINE INDEX 2.9 % (1.4-3.8); MAGNESIUM LEVEL 1.7 MG/DL (1.8-2.4); PHOSPHORUS LEVEL 2.9 MG/DL (2.5-4.9); T UPTAKE 34 % (33-40); THYROXINE (T4) 8.4 UG/DL (4.5-12.0)
[2017-04-29 13:09] LABS: OSMOLALITY SERUM 279 MOSM/KG (280-301)
[2017-04-29 13:45] LABS: ALBUMIN/GLOBULIN RATIO 0.73 (1.00-1.93); ALKALINE PHOSPHATASE 79 U/L (45-117); ALT/SGPT 18 U/L (12-78); ANION GAP 8 MEQ/L (8-16); AST/SGOT 12 U/L (7-37); BILIRUBIN,TOTAL 0.3 MG/DL (0.2-1.0); BLOOD UREA NITROGEN 37 MG/DL (7-18); CALCIUM LEVEL 13.6 MG/DL (8.8-10.2); CARBON DIOXIDE LEVEL 29 MEQ/L (21-32); CHLORIDE LEVEL 92 MEQ/L (98-107); CHLORIDE,RANDOM URINE 26 MEQ/L; CREATININE FOR GFR 1.58 MG/DL (0.70-1.30); GLOMERULAR FILTRATION RATE 47.7 (>49); GLUCOSE, FASTING 142 MG/DL (80-110); INR 0.99; POTASSIUM SERUM 3.9 MEQ/L (3.5-5.1); PROTHROMBIN TIME 13.2 SECONDS (12.4-14.5); SODIUM LEVEL 129 MEQ/L (136-145); TOTAL PROTEIN 7.1 GM/DL (6.4-8.2)
[2017-04-29 13:45] LABS: SODIUM,RANDOM URINE 22 MEQ/L
[2017-04-29 14:13] LABS: PTH INTACT < 6.3 PG/ML (14.0-72.0)
[2017-04-29] MEDS: MORPHINE 4 MG/ML 1ML SYRINGE IV (14:45)
[2017-04-29 14:48] LABS: TOTAL 25(OH) VITAMIN D 31.7 NG/ML (30.0-100.0)
[2017-04-29 18:20] LABS: ANION GAP 7 MEQ/L (8-16); BLOOD UREA NITROGEN 35 MG/DL (7-18); CALCIUM LEVEL 13.4 MG/DL (8.8-10.2); CARBON DIOXIDE LEVEL 30 MEQ/L (21-32); CHLORIDE LEVEL 94 MEQ/L (98-107); CREATININE FOR GFR 1.49 MG/DL (0.70-1.30); GLUCOSE, FASTING 122 MG/DL (80-110); POTASSIUM SERUM 4.7 MEQ/L (3.5-5.1); SODIUM LEVEL 131 MEQ/L (136-145)
[2017-04-29] MEDS: ACETAMINOPHEN TAB 650MG DOSE (2X325MG) PO (19:05)
[2017-04-29] MEDS: MAG SULF 1GM/100ML (MAG RUN) 1 GM in APPROPRIATE DILUENT 1 EA IV (19:11)
[2017-04-29] MEDS: PIPERACILLIN/TAZOBACTAM SOD 2.25 GM in APPROPRIATE DILUENT 1 EA IV (20:36)
[2017-04-29] MEDS: PERCOCET 5MG/325MG TAB PO (20:37)
[2017-04-29] MEDS ORDERED: GLUCOSE 4 GM CHEW TABLET PO (20:45)
[2017-04-29] MEDS ORDERED: DEXTROSE 50% 50 ML SYRINGE IV (20:45)
[2017-04-29] MEDS ORDERED: GLUCAGON FOR INJ 1 MG VIAL (J1610) SC (20:45)
[2017-04-29] MEDS: HumaLOG INSULIN (NovoLOG) PER UNIT SC (21:00)
[2017-04-29] MEDS: HEPARIN SOD (PORCINE) 5000 UNITS/ML VIAL SC (21:34)
[2017-04-29] MEDS: CALCITONIN SALMON (MIACALCIN) 400INTERNATIONAL UNITS/2ML INJ (J0630) SQ (21:34)
[2017-04-29 21:46] LABS: BEDSIDE GLUCOSE 204 MG/DL (80-115)
[2017-04-29] MEDS: ZOLEDRONIC ACID 4 MG in D5W 100 ML IV (23:55)
[2017-04-30] MEDS: PIPERACILLIN/TAZOBACTAM SOD 2.25 GM in APPROPRIATE DILUENT 1 EA IV ×4 (01:05→18:43)
[2017-04-30] MEDS: ONDANSETRON 4MG/2ML VIAL (J2405) IV ×2 (01:05→14:18)
[2017-04-30] MEDS: MORPHINE 2 MG/ML 1ML SYRINGE IV ×3 (01:05→14:18)
[2017-04-30] MEDS: NS 1,000 ML IV ×2 (03:26→14:17)
[2017-04-30 06:09] LABS: BASO % 0.2 % (0.0-1.0); EOS % 0.4 % (0.0-3.0); HEMATOCRIT 25.4 % (42.0-52.0); HEMOGLOBIN 8.5 g/dl (14.0-18.0); IMMATURE GRANULOCYTE # 0.1 10^3/uL (0-0); LYMPH # 0.5 10^3/uL (1.5-4.5); LYMPH % 5.7 % (24.0-44.0); MEAN CORPUSCULAR HEMOGLOBIN 27.2 pg (27.0-33.0); MEAN CORPUSCULAR HGB CONC 33.5 g/dl (32.0-36.5); MEAN CORPUSCULAR VOLUME 81.4 fl (80.0-96.0); MONO # 0.8 10^3/uL (0.0-0.8); MONO % 9.1 % (0.0-5.0); NEUTROPHILS # 7.5 10^3/uL (1.8-7.7); NEUTROPHILS % 83.6 % (36.0-66.0); PLATELET COUNT, AUTOMATED 182 10^3/uL (150-450); RED BLOOD COUNT 3.12 10^6/uL (4.30-6.10); RED CELL DISTRIBUTION WIDTH 13.2 % (11.5-14.5)
[2017-04-30] MEDS: HEPARIN SOD (PORCINE) 5000 UNITS/ML VIAL SC ×3 (06:11→22:25)
[2017-04-30 06:25] LABS: ALBUMIN 2.7 GM/DL (3.2-5.2); ALBUMIN/GLOBULIN RATIO 0.73 (1.00-1.93); ALKALINE PHOSPHATASE 68 U/L (45-117); ALT/SGPT 14 U/L (12-78); ANION GAP 6 MEQ/L (8-16); AST/SGOT 11 U/L (7-37); BILIRUBIN,TOTAL 0.3 MG/DL (0.2-1.0); BLOOD UREA NITROGEN 40 MG/DL (7-18); CALCIUM LEVEL 11.9 MG/DL (8.8-10.2); CARBON DIOXIDE LEVEL 29 MEQ/L (21-32); CHLORIDE LEVEL 95 MEQ/L (98-107); CREATININE FOR GFR 1.72 MG/DL (0.70-1.30); GLOMERULAR FILTRATION RATE 43.3 (>49); GLUCOSE, FASTING 179 MG/DL (80-110); MAGNESIUM LEVEL 1.8 MG/DL (1.8-2.4); POTASSIUM SERUM 4.2 MEQ/L (3.5-5.1); SODIUM LEVEL 130 MEQ/L (136-145); TOTAL PROTEIN 6.4 GM/DL (6.4-8.2)
[2017-04-30 06:38] LABS: FERRITIN 414 NG/ML (26-388); IRON (FE) 22 UG/DL (65-175); TOTAL IRON BINDING CAPACITY 221 UG/DL (250-450)
[2017-04-30] MEDS: HumaLOG INSULIN (NovoLOG) PER UNIT SC ×4 (07:53→22:25)
[2017-04-30] MEDS: CALCITONIN SALMON (MIACALCIN) 400INTERNATIONAL UNITS/2ML INJ (J0630) SQ ×2 (11:26→22:24)
[2017-04-30 11:38] LABS: BEDSIDE GLUCOSE 174 MG/DL (80-115)
[2017-04-30] MEDS: IRON SUCROSE 25 MG in NS 50 ML IV (11:45)
[2017-04-30] MEDS: IRON SUCROSE 225 MG in NS 250 ML IV (14:24)
[2017-04-30 17:29] LABS: BEDSIDE GLUCOSE 248 MG/DL (80-115)
[2017-04-30 20:56] LABS: BEDSIDE GLUCOSE 276 MG/DL (80-115)
[2017-05-01] MEDS: NS 1,000 ML IV (00:01)
[2017-05-01] MEDS: PIPERACILLIN/TAZOBACTAM SOD 2.25 GM in APPROPRIATE DILUENT 1 EA IV (00:02)
[2017-05-01 05:44] LABS: BASO % 0.2 % (0.0-1.0); EOS % 0.2 % (0.0-3.0); HEMATOCRIT 23.2 % (42.0-52.0); HEMOGLOBIN 7.9 g/dl (14.0-18.0); IMMATURE GRANULOCYTE # 0.2 10^3/uL (0-0); IMMATURE GRANULOCYTE % 1.7 % (0-0); LYMPH # 0.5 10^3/uL (1.5-4.5); LYMPH % 3.9 % (24.0-44.0); MEAN CORPUSCULAR HEMOGLOBIN 27.6 pg (27.0-33.0); MEAN CORPUSCULAR HGB CONC 34.1 g/dl (32.0-36.5); MEAN CORPUSCULAR VOLUME 81.1 fl (80.0-96.0); MONO # 0.7 10^3/uL (0.0-0.8); MONO % 5.1 % (0.0-5.0); NEUTROPHILS # 11.8 10^3/uL (1.8-7.7); NEUTROPHILS % 88.9 % (36.0-66.0); PLATELET COUNT, AUTOMATED 173 10^3/uL (150-450); RED BLOOD COUNT 2.86 10^6/uL (4.30-6.10); RED CELL DISTRIBUTION WIDTH 13.2 % (11.5-14.5); WHITE BLOOD COUNT 13.2 10^3/uL (4.0-10.0)
[2017-05-01 06:02] LABS: ALBUMIN 2.5 GM/DL (3.2-5.2); ALBUMIN/GLOBULIN RATIO 0.69 (1.00-1.93); ALKALINE PHOSPHATASE 73 U/L (45-117); ALT/SGPT 21 U/L (12-78); ANION GAP 6 MEQ/L (8-16); AST/SGOT 13 U/L (7-37); BILIRUBIN,TOTAL 0.3 MG/DL (0.2-1.0); BLOOD UREA NITROGEN 38 MG/DL (7-18); CALCIUM LEVEL 10.5 MG/DL (8.8-10.2); CARBON DIOXIDE LEVEL 26 MEQ/L (21-32); CHLORIDE LEVEL 96 MEQ/L (98-107); CREATININE FOR GFR 1.69 MG/DL (0.70-1.30); GLOMERULAR FILTRATION RATE 44.1 (>49); GLUCOSE, FASTING 179 MG/DL (80-110); MAGNESIUM LEVEL 1.8 MG/DL (1.8-2.4); SODIUM LEVEL 128 MEQ/L (136-145); TOTAL PROTEIN 6.1 GM/DL (6.4-8.2)
[2017-05-01] MEDS: HEPARIN SOD (PORCINE) 5000 UNITS/ML VIAL SC ×3 (06:34→21:22)
[2017-05-01] MEDS: ONDANSETRON 4MG/2ML VIAL (J2405) IV (07:00)
[2017-05-01] MEDS ORDERED: IRON SUCROSE 100MG 5ML VIAL (J1756 PER 1MG) IV (09:00)
[2017-05-01] MEDS: HumaLOG INSULIN (NovoLOG) PER UNIT SC ×4 (09:09→20:45)
[2017-05-01] MEDS: CALCITONIN SALMON (MIACALCIN) 400INTERNATIONAL UNITS/2ML INJ (J0630) SQ (09:10)
[2017-05-01] MEDS: MORPHINE 2 MG/ML 1ML SYRINGE IV ×2 (09:15→19:51)
[2017-05-01 12:11] LABS: BEDSIDE GLUCOSE 172 MG/DL (80-115)
[2017-05-01] MEDS: ACETAMINOPHEN TAB 650MG DOSE (2X325MG) PO (12:38)
[2017-05-01] MEDS: diphenhydrAMINE 25 MG CAP PO (12:38)
[2017-05-01 12:42] LABS: IMMEDIATE SPIN CROSSMATCH 1 1
[2017-05-01] MEDS: IRON SUCROSE 250 MG in NS 250 ML IV (14:46)
[2017-05-01 17:02] LABS: BEDSIDE GLUCOSE 136 MG/DL (80-115)
[2017-05-01 18:14] LABS: HEMATOCRIT 26.2 % (42.0-52.0); HEMOGLOBIN 8.8 g/dl (14.0-18.0)
[2017-05-01 18:33] LABS: APPEARANCE, URINE CLOUDY (CLEAR); BACTERIA, URINE AUTO NEGATIVE (NEGATIVE); BILIRUBIN, URINE AUTO NEGATIVE (NEGATIVE); BLOOD, URINE BLOOD 1+ (NEGATIVE); COLOR, URINE YELLOW (YELLOW); GLUCOSE, URINE (UA) AUTO 3+ mg/dL (NEGATIVE); KETONE, URINE AUTO NEGATIVE (NEGATIVE); LEUKOCYTE ESTERASE, URINE AUTO 3+ (NEGATIVE); NITRITE, URINE AUTO NEGATIVE (NEGATIVE); PROTEIN, URINE AUTO NEGATIVE (NEGATIVE); RBC, URINE AUTO 20 /HPF (0-3); SPECIFIC GRAVITY URINE AUTO 1.016 (1.002-1.035); SQUAMOUS EPITHELIAL CELL UR AU 0 /HPF (0-6); UROBILINOGEN, URINE AUTO 0.2 mg/dL (0.0-2.0); WBC, URINE AUTO TNTC /HPF (0-3); YEAST LIKE CELL URINE AUTO LARGE
[2017-05-01 20:49] LABS: BEDSIDE GLUCOSE 219 MG/DL (80-115)
[2017-05-02] MEDS: MORPHINE 2 MG/ML 1ML SYRINGE IV ×3 (04:37→18:28)
[2017-05-02] MEDS: HEPARIN SOD (PORCINE) 5000 UNITS/ML VIAL SC ×3 (05:09→21:30)
[2017-05-02 05:51] LABS: BASO % 0.2 % (0.0-1.0); EOS # 0.1 10^3/uL (0.0-0.50); EOS % 0.4 % (0.0-3.0); HEMATOCRIT 24.7 % (42.0-52.0); HEMOGLOBIN 8.5 g/dl (14.0-18.0); IMMATURE GRANULOCYTE # 0.3 10^3/uL (0-0); IMMATURE GRANULOCYTE % 1.8 % (0-0); LYMPH # 0.5 10^3/uL (1.5-4.5); LYMPH % 3.6 % (24.0-44.0); MEAN CORPUSCULAR HEMOGLOBIN 28.2 pg (27.0-33.0); MEAN CORPUSCULAR HGB CONC 34.4 g/dl (32.0-36.5); MEAN CORPUSCULAR VOLUME 82.1 fl (80.0-96.0); MONO # 0.6 10^3/uL (0.0-0.8); MONO % 4.1 % (0.0-5.0); NEUTROPHILS # 12.6 10^3/uL (1.8-7.7); NEUTROPHILS % 89.9 % (36.0-66.0); PLATELET COUNT, AUTOMATED 183 10^3/uL (150-450); RED BLOOD COUNT 3.01 10^6/uL (4.30-6.10); RED CELL DISTRIBUTION WIDTH 13.4 % (11.5-14.5)
[2017-05-02 06:06] LABS: ALBUMIN 2.4 GM/DL (3.2-5.2); ALBUMIN/GLOBULIN RATIO 0.62 (1.00-1.93); ALKALINE PHOSPHATASE 86 U/L (45-117); ALT/SGPT 23 U/L (12-78); ANION GAP 8 MEQ/L (8-16); AST/SGOT 12 U/L (7-37); BILIRUBIN,TOTAL 0.5 MG/DL (0.2-1.0); BLOOD UREA NITROGEN 38 MG/DL (7-18); CALCIUM LEVEL 10.1 MG/DL (8.8-10.2); CARBON DIOXIDE LEVEL 26 MEQ/L (21-32); CHLORIDE LEVEL 94 MEQ/L (98-107); CREATININE FOR GFR 1.51 MG/DL (0.70-1.30); GLOMERULAR FILTRATION RATE 50.3 (>49); GLUCOSE, FASTING 141 MG/DL (80-110); MAGNESIUM LEVEL 1.7 MG/DL (1.8-2.4); POTASSIUM SERUM 3.9 MEQ/L (3.5-5.1); SODIUM LEVEL 128 MEQ/L (136-145); TOTAL PROTEIN 6.3 GM/DL (6.4-8.2)
[2017-05-02] MEDS: HumaLOG INSULIN (NovoLOG) PER UNIT SC ×4 (07:30→21:30)
[2017-05-02] MEDS ORDERED: CALCITONIN SALMON (MIACALCIN) 400INTERNATIONAL UNITS/2ML INJ (J0630) SQ (10:00)
[2017-05-02 11:44] LABS: BEDSIDE GLUCOSE 233 MG/DL (80-115)
[2017-05-02 16:46] LABS: BEDSIDE GLUCOSE 201 MG/DL (80-115)
[2017-05-02 20:36] LABS: BEDSIDE GLUCOSE 258 MG/DL (80-115)
[2017-05-02] MEDS: PERCOCET 5MG/325MG TAB PO (21:33)
[2017-05-03] MEDS: MORPHINE 2 MG/ML 1ML SYRINGE IV ×2 (00:55→08:53)
[2017-05-03] MEDS: HEPARIN SOD (PORCINE) 5000 UNITS/ML VIAL SC ×3 (05:55→21:06)
[2017-05-03] MEDS: PERCOCET 5MG/325MG TAB PO ×2 (05:56→15:56)
[2017-05-03 06:36] LABS: BASO % 0.2 % (0.0-1.0); EOS # 0.1 10^3/uL (0.0-0.50); EOS % 0.5 % (0.0-3.0); IMMATURE GRANULOCYTE # 0.3 10^3/uL (0-0); IMMATURE GRANULOCYTE % 2.4 % (0-0); LYMPH # 0.7 10^3/uL (1.5-4.5); LYMPH % 5.5 % (24.0-44.0); MEAN CORPUSCULAR HEMOGLOBIN 28.1 pg (27.0-33.0); MEAN CORPUSCULAR HGB CONC 34.6 g/dl (32.0-36.5); MEAN CORPUSCULAR VOLUME 81.3 fl (80.0-96.0); MONO # 0.7 10^3/uL (0.0-0.8); MONO % 5.6 % (0.0-5.0); NEUTROPHILS # 11.2 10^3/uL (1.8-7.7); NEUTROPHILS % 85.8 % (36.0-66.0); PLATELET COUNT, AUTOMATED 184 10^3/uL (150-450); RED CELL DISTRIBUTION WIDTH 13.3 % (11.5-14.5)
[2017-05-03 06:58] LABS: ALBUMIN 2.5 GM/DL (3.2-5.2); ALBUMIN/GLOBULIN RATIO 0.66 (1.00-1.93); ALKALINE PHOSPHATASE 86 U/L (45-117); ALT/SGPT 24 U/L (12-78); ANION GAP 6 MEQ/L (8-16); AST/SGOT 13 U/L (7-37); BILIRUBIN,TOTAL 0.3 MG/DL (0.2-1.0); BLOOD UREA NITROGEN 38 MG/DL (7-18); CALCIUM LEVEL 9.6 MG/DL (8.8-10.2); CARBON DIOXIDE LEVEL 27 MEQ/L (21-32); CHLORIDE LEVEL 96 MEQ/L (98-107); GLOMERULAR FILTRATION RATE 54.8 (>49); GLUCOSE, FASTING 143 MG/DL (80-110); MAGNESIUM LEVEL 1.9 MG/DL (1.8-2.4); SODIUM LEVEL 129 MEQ/L (136-145); TOTAL PROTEIN 6.3 GM/DL (6.4-8.2)
[2017-05-03] MEDS: HumaLOG INSULIN (NovoLOG) PER UNIT SC ×4 (07:28→20:47)
[2017-05-03 07:31] LABS: OSMOLALITY SERUM 279 MOSM/KG (280-301)
[2017-05-03 11:47] LABS: BEDSIDE GLUCOSE 161 MG/DL (80-115)
[2017-05-03] MEDS: MORPHINE 4 MG/ML 1ML SYRINGE IV ×2 (13:35→21:06)
[2017-05-03 17:06] LABS: SODIUM,RANDOM URINE 18 MEQ/L
[2017-05-03 17:12] LABS: BEDSIDE GLUCOSE 202 MG/DL (80-115)
[2017-05-03 17:16] LABS: OSMOLALITY URINE 383 MOSM/KG (500-800)
[2017-05-03 21:21] LABS: BEDSIDE GLUCOSE 248 MG/DL (80-115)
[2017-05-04] MEDS: MORPHINE 4 MG/ML 1ML SYRINGE IV ×5 (00:37→19:49)
[2017-05-04] MEDS: HEPARIN SOD (PORCINE) 5000 UNITS/ML VIAL SC ×3 (06:54→19:39)
[2017-05-04] MEDS: HumaLOG INSULIN (NovoLOG) PER UNIT SC ×4 (07:30→19:53)
[2017-05-04 08:13] LABS: BASO % 0.2 % (0.0-1.0); EOS # 0.1 10^3/uL (0.0-0.50); EOS % 0.7 % (0.0-3.0); HEMATOCRIT 24.7 % (42.0-52.0); HEMOGLOBIN 8.5 g/dl (14.0-18.0); IMMATURE GRANULOCYTE # 0.3 10^3/uL (0-0); LYMPH # 0.8 10^3/uL (1.5-4.5); LYMPH % 5.8 % (24.0-44.0); MEAN CORPUSCULAR HEMOGLOBIN 28.1 pg (27.0-33.0); MEAN CORPUSCULAR HGB CONC 34.4 g/dl (32.0-36.5); MEAN CORPUSCULAR VOLUME 81.5 fl (80.0-96.0); MONO # 0.9 10^3/uL (0.0-0.8); NEUTROPHILS # 11.1 10^3/uL (1.8-7.7); NEUTROPHILS % 84.3 % (36.0-66.0); PLATELET COUNT, AUTOMATED 192 10^3/uL (150-450); RED BLOOD COUNT 3.03 10^6/uL (4.30-6.10); RED CELL DISTRIBUTION WIDTH 13.4 % (11.5-14.5); WHITE BLOOD COUNT 13.2 10^3/uL (4.0-10.0)
[2017-05-04 08:45] LABS: ALBUMIN 2.5 GM/DL (3.2-5.2); ALBUMIN/GLOBULIN RATIO 0.66 (1.00-1.93); ALKALINE PHOSPHATASE 92 U/L (45-117); ALT/SGPT 23 U/L (12-78); ANION GAP 8 MEQ/L (8-16); AST/SGOT 16 U/L (7-37); BILIRUBIN,TOTAL 0.3 MG/DL (0.2-1.0); BLOOD UREA NITROGEN 34 MG/DL (7-18); CALCIUM LEVEL 9.5 MG/DL (8.8-10.2); CARBON DIOXIDE LEVEL 25 MEQ/L (21-32); CHLORIDE LEVEL 95 MEQ/L (98-107); GLOMERULAR FILTRATION RATE 59.7 (>49); GLUCOSE, FASTING 151 MG/DL (80-110); MAGNESIUM LEVEL 1.9 MG/DL (1.8-2.4); POTASSIUM SERUM 4.2 MEQ/L (3.5-5.1); SODIUM LEVEL 128 MEQ/L (136-145); TOTAL PROTEIN 6.3 GM/DL (6.4-8.2)
[2017-05-04] MEDS: TOLVAPTAN 7.5 MG HALF-TAB PO (10:46)
[2017-05-04 12:03] LABS: BEDSIDE GLUCOSE 214 MG/DL (80-115)
[2017-05-04] MEDS: PERCOCET 5MG/325MG TAB PO ×2 (12:25→19:52)
[2017-05-04 16:43] LABS: BEDSIDE GLUCOSE 223 MG/DL (80-115)
[2017-05-04 18:31] LABS: ALBUMIN 2.5 GM/DL (3.2-5.2); ALBUMIN/GLOBULIN RATIO 0.58 (1.00-1.93); ALKALINE PHOSPHATASE 107 U/L (45-117); ALT/SGPT 31 U/L (12-78); ANION GAP 8 MEQ/L (8-16); AST/SGOT 20 U/L (7-37); BILIRUBIN,TOTAL 0.2 MG/DL (0.2-1.0); BLOOD UREA NITROGEN 35 MG/DL (7-18); CALCIUM LEVEL 9.4 MG/DL (8.8-10.2); CARBON DIOXIDE LEVEL 25 MEQ/L (21-32); CHLORIDE LEVEL 96 MEQ/L (98-107); GLOMERULAR FILTRATION RATE 50.7 (>49); GLUCOSE, FASTING 172 MG/DL (80-110); SODIUM LEVEL 129 MEQ/L (136-145); TOTAL PROTEIN 6.8 GM/DL (6.4-8.2)
[2017-05-04] MEDS: KCL 20MEQ in NS 1000ML 1,000 ML IV (20:45)
[2017-05-05] MEDS: MORPHINE 4 MG/ML 1ML SYRINGE IV ×4 (01:18→23:30)
[2017-05-05] MEDS: PERCOCET 5MG/325MG TAB PO ×3 (01:18→23:27)
[2017-05-05] MEDS: HEPARIN SOD (PORCINE) 5000 UNITS/ML VIAL SC ×3 (04:58→22:47)
[2017-05-05 06:00] LABS: BASO % 0.3 % (0.0-1.0); EOS # 0.1 10^3/uL (0.0-0.50); HEMATOCRIT 26.6 % (42.0-52.0); IMMATURE GRANULOCYTE # 0.3 10^3/uL (0-0); IMMATURE GRANULOCYTE % 2.5 % (0-0); LYMPH # 0.9 10^3/uL (1.5-4.5); LYMPH % 7.6 % (24.0-44.0); MEAN CORPUSCULAR HEMOGLOBIN 27.8 pg (27.0-33.0); MEAN CORPUSCULAR HGB CONC 33.8 g/dl (32.0-36.5); MEAN CORPUSCULAR VOLUME 82.1 fl (80.0-96.0); NEUTROPHILS # 9.5 10^3/uL (1.8-7.7); NEUTROPHILS % 80.6 % (36.0-66.0); PLATELET COUNT, AUTOMATED 218 10^3/uL (150-450); RED BLOOD COUNT 3.24 10^6/uL (4.30-6.10); RED CELL DISTRIBUTION WIDTH 13.5 % (11.5-14.5); WHITE BLOOD COUNT 11.8 10^3/uL (4.0-10.0)
[2017-05-05 06:25] LABS: ALBUMIN 2.5 GM/DL (3.2-5.2); ALBUMIN/GLOBULIN RATIO 0.63 (1.00-1.93); ALKALINE PHOSPHATASE 99 U/L (45-117); ALT/SGPT 29 U/L (12-78); ANION GAP 5 MEQ/L (8-16); AST/SGOT 18 U/L (7-37); BILIRUBIN,TOTAL 0.2 MG/DL (0.2-1.0); BLOOD UREA NITROGEN 36 MG/DL (7-18); CALCIUM LEVEL 9.4 MG/DL (8.8-10.2); CARBON DIOXIDE LEVEL 26 MEQ/L (21-32); CHLORIDE LEVEL 100 MEQ/L (98-107); CREATININE FOR GFR 1.37 MG/DL (0.70-1.30); GLOMERULAR FILTRATION RATE 56.2 (>49); GLUCOSE, FASTING 147 MG/DL (80-110); MAGNESIUM LEVEL 2.2 MG/DL (1.8-2.4); POTASSIUM SERUM 4.3 MEQ/L (3.5-5.1); SODIUM LEVEL 131 MEQ/L (136-145); TOTAL PROTEIN 6.5 GM/DL (6.4-8.2); URIC ACID 9.4 MG/DL (3.5-7.2)
[2017-05-05] MEDS: HumaLOG INSULIN (NovoLOG) PER UNIT SC ×4 (07:30→20:43)
[2017-05-05 08:28] LABS: BEDSIDE GLUCOSE 239 MG/DL (80-115)
[2017-05-05] MEDS: CEFOTETAN DISODIUM 2 GM in APPROPRIATE DILUENT 1 EA IV ×2 (08:37→20:41)
[2017-05-05] MEDS: ALLOPURINOL 100 MG TAB PO (09:00)
[2017-05-05 09:26] LABS: ABG BASE EXCESS -1.3 (-2.0-2.0); ABG DEVICE MECHAN. VENT; ABG FIO2 46; ABG HCO3 22.6 MEQ/L (22.0-26.0); ABG O2 SATURATION 99.2 % (95.0-99.0); ABG PARTIAL PRESSURE CO2 34.2 mmHg (35.0-45.0); ABG PARTIAL PRESSURE O2 192.8 mmHg (75.0-100.0); ABG SITE ART LINE; ABG STANDARD HCO3 23.4 MEQ/L (22.0-26.0); ABG TOTAL CO2 23.7 MEQ/L (23.0-31.0); ABG pH (ARTERIAL) 7.438 UNITS (7.350-7.450)
[2017-05-05 09:44] LABS: HEMATOCRIT 22.4 % (42.0-52.0); HEMOGLOBIN 7.6 g/dl (14.0-18.0); MEAN CORPUSCULAR HGB CONC 33.9 g/dl (32.0-36.5); MEAN CORPUSCULAR VOLUME 82.7 fl (80.0-96.0); PLATELET COUNT, AUTOMATED 194 10^3/uL (150-450); RED BLOOD COUNT 2.71 10^6/uL (4.30-6.10); RED CELL DISTRIBUTION WIDTH 13.6 % (11.5-14.5); WHITE BLOOD COUNT 13.8 10^3/uL (4.0-10.0)
[2017-05-05 09:56] LABS: ALBUMIN 2.2 GM/DL (3.2-5.2); ALBUMIN/GLOBULIN RATIO 0.73 (1.00-1.93); ALKALINE PHOSPHATASE 84 U/L (45-117); ALT/SGPT 23 U/L (12-78); ANION GAP 7 MEQ/L (8-16); AST/SGOT 17 U/L (7-37); BILIRUBIN,TOTAL 0.2 MG/DL (0.2-1.0); BLOOD UREA NITROGEN 35 MG/DL (7-18); CALCIUM LEVEL 8.6 MG/DL (8.8-10.2); CARBON DIOXIDE LEVEL 24 MEQ/L (21-32); CHLORIDE LEVEL 102 MEQ/L (98-107); CREATININE FOR GFR 1.64 MG/DL (0.70-1.30); GLOMERULAR FILTRATION RATE 45.7 (>49); GLUCOSE, FASTING 146 MG/DL (80-110); POTASSIUM SERUM 4.6 MEQ/L (3.5-5.1); SODIUM LEVEL 133 MEQ/L (136-145); TOTAL PROTEIN 5.2 GM/DL (6.4-8.2)
[2017-05-05 10:56] LABS: IMMEDIATE SPIN CROSSMATCH 1 6
[2017-05-05 10:56] LABS: TYPE AND SCREEN 1
[2017-05-05 11:20] LABS: HEMATOCRIT 23.3 % (42.0-52.0); MEAN CORPUSCULAR HEMOGLOBIN 28.7 pg (27.0-33.0); MEAN CORPUSCULAR HGB CONC 34.3 g/dl (32.0-36.5); MEAN CORPUSCULAR VOLUME 83.5 fl (80.0-96.0); PLATELET COUNT, AUTOMATED 211 10^3/uL (150-450); RED BLOOD COUNT 2.79 10^6/uL (4.30-6.10); RED CELL DISTRIBUTION WIDTH 13.3 % (11.5-14.5)
[2017-05-05 11:31] LABS: FIBRINOGEN 360 MG/DL (221-452); INR 1.21; PROTHROMBIN TIME 15.5 SECONDS (12.4-14.5)
[2017-05-05 12:37] LABS: HEMATOCRIT 26.6 % (42.0-52.0); HEMOGLOBIN 9.1 g/dl (14.0-18.0)
[2017-05-05 13:13] LABS: HEMATOCRIT 26.9 % (42.0-52.0); HEMOGLOBIN 9.4 g/dl (14.0-18.0)
[2017-05-05 15:45] LABS: BEDSIDE GLUCOSE 201 MG/DL (80-115)
[2017-05-05] MEDS ORDERED: MORPHINE 4 MG/ML 1ML SYRINGE As Ordered (16:28)
[2017-05-05] MEDS: KCL 20MEQ in NS 1000ML 1,000 ML IV (17:00)
[2017-05-05] MEDS ORDERED: oxyCODONE 5MG TAB PO (17:00)
[2017-05-05] MEDS ORDERED: ONDANSETRON 4MG/2ML VIAL (J2405) IV ×2 (17:00→17:15)
[2017-05-05] MEDS: LR 1,000 ML IV (17:15)
[2017-05-05] MEDS ORDERED: MORPHINE 10 MG/ML 1ML VIAL IV (17:15)
[2017-05-05] MEDS ORDERED: fentaNYL 100 MCG/2 ML INJECTION (J3010) IV (17:15)
[2017-05-05 21:31] LABS: HEMATOCRIT 21.8 % (42.0-52.0); HEMOGLOBIN 7.5 g/dl (14.0-18.0); MEAN CORPUSCULAR HEMOGLOBIN 29.2 pg (27.0-33.0); MEAN CORPUSCULAR HGB CONC 34.4 g/dl (32.0-36.5); MEAN CORPUSCULAR VOLUME 84.8 fl (80.0-96.0); PLATELET COUNT, AUTOMATED 158 10^3/uL (150-450); RED BLOOD COUNT 2.57 10^6/uL (4.30-6.10); RED CELL DISTRIBUTION WIDTH 13.9 % (11.5-14.5); WHITE BLOOD COUNT 20.5 10^3/uL (4.0-10.0)
[2017-05-05 21:54] LABS: ANION GAP 8 MEQ/L (8-16); BLOOD UREA NITROGEN 31 MG/DL (7-18); CALCIUM LEVEL 7.6 MG/DL (8.8-10.2); CARBON DIOXIDE LEVEL 22 MEQ/L (21-32); CHLORIDE LEVEL 105 MEQ/L (98-107); CREATININE FOR GFR 1.69 MG/DL (0.70-1.30); GLOMERULAR FILTRATION RATE 44.1 (>49); GLUCOSE, FASTING 248 MG/DL (80-110); MAGNESIUM LEVEL 1.5 MG/DL (1.8-2.4); PHOSPHORUS LEVEL 2.3 MG/DL (2.5-4.9); SODIUM LEVEL 135 MEQ/L (136-145)
[2017-05-05] MEDS ORDERED: ACETAMINOPHEN 650MG ER TAB (TYLENOL ARTHRITIS) PO (22:00)
[2017-05-05 22:07] LABS: POTASSIUM SERUM 5.2 MEQ/L (3.5-5.1)
[2017-05-05] MEDS: NS 1,000 ML IV (22:46)
[2017-05-06] MEDS: MORPHINE 4 MG/ML 1ML SYRINGE IV ×5 (05:24→20:42)
[2017-05-06] MEDS: PERCOCET 5MG/325MG TAB PO ×4 (05:24→18:43)
[2017-05-06] MEDS: HEPARIN SOD (PORCINE) 5000 UNITS/ML VIAL SC ×3 (05:25→21:29)
[2017-05-06 06:46] LABS: BASO % 0.2 % (0.0-1.0); EOS % 0.1 % (0.0-3.0); HEMATOCRIT 21.1 % (42.0-52.0); HEMOGLOBIN 7.4 g/dl (14.0-18.0); IMMATURE GRANULOCYTE # 0.4 10^3/uL (0-0); IMMATURE GRANULOCYTE % 2.3 % (0-0); LYMPH % 5.5 % (24.0-44.0); MEAN CORPUSCULAR HEMOGLOBIN 29.4 pg (27.0-33.0); MEAN CORPUSCULAR HGB CONC 35.1 g/dl (32.0-36.5); MEAN CORPUSCULAR VOLUME 83.7 fl (80.0-96.0); MONO # 1.3 10^3/uL (0.0-0.8); MONO % 7.5 % (0.0-5.0); NEUTROPHILS # 14.7 10^3/uL (1.8-7.7); NEUTROPHILS % 84.4 % (36.0-66.0); PLATELET COUNT, AUTOMATED 160 10^3/uL (150-450); RED BLOOD COUNT 2.52 10^6/uL (4.30-6.10); RED CELL DISTRIBUTION WIDTH 13.9 % (11.5-14.5); WHITE BLOOD COUNT 17.4 10^3/uL (4.0-10.0)
[2017-05-06 07:08] LABS: ALBUMIN 1.9 GM/DL (3.2-5.2); ALKALINE PHOSPHATASE 53 U/L (45-117); ALT/SGPT 15 U/L (12-78); ANION GAP 6 MEQ/L (8-16); AST/SGOT 20 U/L (7-37); BILIRUBIN,TOTAL 0.3 MG/DL (0.2-1.0); BLOOD UREA NITROGEN 29 MG/DL (7-18); CALCIUM LEVEL 7.4 MG/DL (8.8-10.2); CARBON DIOXIDE LEVEL 24 MEQ/L (21-32); CHLORIDE LEVEL 103 MEQ/L (98-107); CREATININE FOR GFR 1.02 MG/DL (0.70-1.30); GLOMERULAR FILTRATION RATE > 60.0 (>49); GLUCOSE, FASTING 231 MG/DL (80-110); MAGNESIUM LEVEL 1.4 MG/DL (1.8-2.4); POTASSIUM SERUM 4.8 MEQ/L (3.5-5.1); SODIUM LEVEL 133 MEQ/L (136-145); TOTAL PROTEIN 4.6 GM/DL (6.4-8.2)
[2017-05-06] MEDS: HumaLOG INSULIN (NovoLOG) PER UNIT SC ×4 (09:08→20:45)
[2017-05-06] MEDS: PANTOPRAZOLE 40MG INJ (PROTONIX) (C9113) IV (09:09)
[2017-05-06] MEDS: CEFOTETAN DISODIUM 2 GM in APPROPRIATE DILUENT 1 EA IV ×2 (09:09→20:41)
[2017-05-06] MEDS: MAG SULF 1GM/100ML (MAG RUN) 1 GM in APPROPRIATE DILUENT 1 EA IV ×2 (09:10→10:49)
[2017-05-06 13:36] LABS: BEDSIDE GLUCOSE 299 MG/DL (80-115)
[2017-05-06 13:37] LABS: BEDSIDE GLUCOSE 307 MG/DL (80-115)
[2017-05-06 13:37] LABS: BEDSIDE GLUCOSE 238 MG/DL (80-115)
[2017-05-06 14:08] LABS: BASO % 0.1 % (0.0-1.0); EOS % 0.2 % (0.0-3.0); HEMATOCRIT 24.6 % (42.0-52.0); HEMOGLOBIN 8.5 g/dl (14.0-18.0); IMMATURE GRANULOCYTE # 0.4 10^3/uL (0-0); IMMATURE GRANULOCYTE % 2.3 % (0-0); LYMPH # 0.9 10^3/uL (1.5-4.5); MEAN CORPUSCULAR HEMOGLOBIN 29.2 pg (27.0-33.0); MEAN CORPUSCULAR HGB CONC 34.6 g/dl (32.0-36.5); MEAN CORPUSCULAR VOLUME 84.5 fl (80.0-96.0); MONO # 1.1 10^3/uL (0.0-0.8); MONO % 7.2 % (0.0-5.0); NEUTROPHILS % 84.2 % (36.0-66.0); PLATELET COUNT, AUTOMATED 162 10^3/uL (150-450); RED BLOOD COUNT 2.91 10^6/uL (4.30-6.10); RED CELL DISTRIBUTION WIDTH 13.7 % (11.5-14.5); WHITE BLOOD COUNT 15.5 10^3/uL (4.0-10.0)
[2017-05-06] MEDS: KETOROLAC 30 MG/ML VIAL (J1885) IV (17:25)
[2017-05-06 21:10] LABS: BEDSIDE GLUCOSE 327 MG/DL (80-115)
[2017-05-07] MEDS: KETOROLAC 30 MG/ML VIAL (J1885) IV ×2 (00:31→07:42)
[2017-05-07] MEDS: MORPHINE 4 MG/ML 1ML SYRINGE IV ×6 (01:48→21:27)
[2017-05-07] MEDS: PERCOCET 5MG/325MG TAB PO ×5 (03:34→19:57)
[2017-05-07] MEDS: HEPARIN SOD (PORCINE) 5000 UNITS/ML VIAL SC ×3 (06:07→21:26)
[2017-05-07] MEDS: PANTOPRAZOLE 40MG INJ (PROTONIX) (C9113) IV (07:42)
[2017-05-07] MEDS: CEFOTETAN DISODIUM 2 GM in APPROPRIATE DILUENT 1 EA IV ×2 (07:43→19:58)
[2017-05-07] MEDS: HumaLOG INSULIN (NovoLOG) PER UNIT SC ×4 (07:45→20:56)
[2017-05-07 09:37] LABS: HEMATOCRIT 23.4 % (42.0-52.0); HEMOGLOBIN 8.1 g/dl (14.0-18.0); MEAN CORPUSCULAR HEMOGLOBIN 29.5 pg (27.0-33.0); MEAN CORPUSCULAR HGB CONC 34.6 g/dl (32.0-36.5); MEAN CORPUSCULAR VOLUME 85.1 fl (80.0-96.0); PLATELET COUNT, AUTOMATED 162 10^3/uL (150-450); RED BLOOD COUNT 2.75 10^6/uL (4.30-6.10); RED CELL DISTRIBUTION WIDTH 14.4 % (11.5-14.5); WHITE BLOOD COUNT 15.3 10^3/uL (4.0-10.0)
[2017-05-07 09:55] LABS: ALBUMIN 2.1 GM/DL (3.2-5.2); ALBUMIN/GLOBULIN RATIO 0.62 (1.00-1.93); ALKALINE PHOSPHATASE 67 U/L (45-117); ALT/SGPT 16 U/L (12-78); ANION GAP 7 MEQ/L (8-16); AST/SGOT 20 U/L (7-37); BILIRUBIN,TOTAL 0.2 MG/DL (0.2-1.0); BLOOD UREA NITROGEN 30 MG/DL (7-18); CALCIUM LEVEL 7.7 MG/DL (8.8-10.2); CARBON DIOXIDE LEVEL 24 MEQ/L (21-32); CHLORIDE LEVEL 101 MEQ/L (98-107); CREATININE FOR GFR 1.35 MG/DL (0.70-1.30); GLOMERULAR FILTRATION RATE 57.2 (>49); GLUCOSE, FASTING 186 MG/DL (80-110); POTASSIUM SERUM 4.4 MEQ/L (3.5-5.1); SODIUM LEVEL 132 MEQ/L (136-145); TOTAL PROTEIN 5.5 GM/DL (6.4-8.2)
[2017-05-07 20:57] LABS: BEDSIDE GLUCOSE 246 MG/DL (80-115)
[2017-05-08] MEDS: PERCOCET 5MG/325MG TAB PO ×6 (00:02→22:32)
[2017-05-08] MEDS: MORPHINE 4 MG/ML 1ML SYRINGE IV ×2 (03:39→08:00)
[2017-05-08] MEDS: HEPARIN SOD (PORCINE) 5000 UNITS/ML VIAL SC ×3 (05:04→22:30)
[2017-05-08 06:26] LABS: BEDSIDE GLUCOSE 189 MG/DL (80-115)
[2017-05-08] MEDS: CEFOTETAN DISODIUM 2 GM in APPROPRIATE DILUENT 1 EA IV (07:56)
[2017-05-08] MEDS: HumaLOG INSULIN (NovoLOG) PER UNIT SC ×4 (07:56→21:00)
[2017-05-08] MEDS: PANTOPRAZOLE 40MG INJ (PROTONIX) (C9113) IV (08:00)
[2017-05-08] MEDS: DOCUSATE SODIUM 100 MG CAP PO ×2 (09:00→21:00)
[2017-05-08 11:55] LABS: BEDSIDE GLUCOSE 200 MG/DL (80-115)
[2017-05-08 16:37] LABS: BEDSIDE GLUCOSE 191 MG/DL (80-115)
[2017-05-08 20:32] LABS: BEDSIDE GLUCOSE 246 MG/DL (80-115)
[2017-05-08] MEDS: CEFDINIR 300 MG CAP (OMNICEF) PO (22:32)
[2017-05-09] MEDS: HEPARIN SOD (PORCINE) 5000 UNITS/ML VIAL SC ×3 (06:06→20:39)
[2017-05-09 06:08] LABS: HEMATOCRIT 22.7 % (42.0-52.0); HEMOGLOBIN 7.7 g/dl (14.0-18.0); MEAN CORPUSCULAR HEMOGLOBIN 29.3 pg (27.0-33.0); MEAN CORPUSCULAR HGB CONC 33.9 g/dl (32.0-36.5); MEAN CORPUSCULAR VOLUME 86.3 fl (80.0-96.0); PLATELET COUNT, AUTOMATED 196 10^3/uL (150-450); RED BLOOD COUNT 2.63 10^6/uL (4.30-6.10); RED CELL DISTRIBUTION WIDTH 14.5 % (11.5-14.5)
[2017-05-09] MEDS: PERCOCET 5MG/325MG TAB PO ×3 (06:12→20:40)
[2017-05-09 06:28] LABS: ANION GAP 6 MEQ/L (8-16); BLOOD UREA NITROGEN 14 MG/DL (7-18); CALCIUM LEVEL 7.5 MG/DL (8.8-10.2); CARBON DIOXIDE LEVEL 25 MEQ/L (21-32); CHLORIDE LEVEL 102 MEQ/L (98-107); CREATININE FOR GFR 0.63 MG/DL (0.70-1.30); GLOMERULAR FILTRATION RATE > 60.0 (>49); GLUCOSE, FASTING 181 MG/DL (80-110); POTASSIUM SERUM 4.4 MEQ/L (3.5-5.1); SODIUM LEVEL 133 MEQ/L (136-145)
[2017-05-09] MEDS: DOCUSATE SODIUM 100 MG CAP PO ×2 (09:00→20:38)
[2017-05-09] MEDS: PANTOPRAZOLE 40MG INJ (PROTONIX) (C9113) IV (09:01)
[2017-05-09] MEDS: CEFDINIR 300 MG CAP (OMNICEF) PO ×2 (09:01→20:38)
[2017-05-09] MEDS: HumaLOG INSULIN (NovoLOG) PER UNIT SC ×4 (09:03→20:42)
[2017-05-09 11:16] LABS: IMMEDIATE SPIN CROSSMATCH 1 1
[2017-05-09 12:14] LABS: BEDSIDE GLUCOSE 197 MG/DL (80-115)
[2017-05-09 16:32] LABS: BEDSIDE GLUCOSE 238 MG/DL (80-115)
[2017-05-09 21:04] LABS: BEDSIDE GLUCOSE 274 MG/DL (80-115)
[2017-05-09] MEDS: MORPHINE 4 MG/ML 1ML SYRINGE IV (22:29)
[2017-05-10] MEDS: PERCOCET 5MG/325MG TAB PO ×3 (01:02→11:34)
[2017-05-10] MEDS: HEPARIN SOD (PORCINE) 5000 UNITS/ML VIAL SC (05:29)
[2017-05-10 07:01] LABS: HEMATOCRIT 24.1 % (42.0-52.0); HEMOGLOBIN 8.2 g/dl (14.0-18.0); MEAN CORPUSCULAR HEMOGLOBIN 29.2 pg (27.0-33.0); MEAN CORPUSCULAR VOLUME 85.8 fl (80.0-96.0); PLATELET COUNT, AUTOMATED 219 10^3/uL (150-450); RED BLOOD COUNT 2.81 10^6/uL (4.30-6.10); RED CELL DISTRIBUTION WIDTH 14.4 % (11.5-14.5); WHITE BLOOD COUNT 11.9 10^3/uL (4.0-10.0)
[2017-05-10 07:24] LABS: ANION GAP 7 MEQ/L (8-16); BLOOD UREA NITROGEN 10 MG/DL (7-18); CALCIUM LEVEL 7.5 MG/DL (8.8-10.2); CARBON DIOXIDE LEVEL 25 MEQ/L (21-32); CHLORIDE LEVEL 101 MEQ/L (98-107); CREATININE FOR GFR 0.55 MG/DL (0.70-1.30); GLOMERULAR FILTRATION RATE > 60.0 (>49); GLUCOSE, FASTING 183 MG/DL (80-110); POTASSIUM SERUM 4.2 MEQ/L (3.5-5.1); SODIUM LEVEL 133 MEQ/L (136-145)
[2017-05-10] MEDS: HumaLOG INSULIN (NovoLOG) PER UNIT SC (08:42)
[2017-05-10] MEDS: DOCUSATE SODIUM 100 MG CAP PO (09:12)
[2017-05-10] MEDS: PANTOPRAZOLE 40MG INJ (PROTONIX) (C9113) IV (09:20)
[2017-05-10] MEDS: CEFDINIR 300 MG CAP (OMNICEF) PO (09:20)
[2017-05-11 14:58] LABS: BEDSIDE GLUCOSE 253 MG/DL (80-115)
== END 2017-05-10 12:19 | disposition home or self-care (01) | DRG 715 ==
LOC: M MSPAV 04-30 17:03 → M ED 11:28 → M ED INP 14:50 → M PCU 17:26
PROVIDERS: Internal Medicine
PROC: 30233J1 Transfusion of Nonautologous Serum Albumin into Peripheral Vein, Percutaneous Approach (ICD-10-PCS; 2017-05-05 07:30)
PROC: 30233K1 Transfusion of Nonautologous Frozen Plasma into Peripheral Vein, Percutaneous Approach (ICD-10-PCS; 2017-05-05 07:30)
PROC: 07BJ0ZZ Excision of Left Inguinal Lymphatic, Open Approach (ICD-10-PCS; principal; 2017-05-05 07:34)
PROC: 07BC0ZZ Excision of Pelvis Lymphatic, Open Approach (ICD-10-PCS; 2017-05-05 07:34)
PROC: 0T9780Z Drainage of Left Ureter with Drainage Device, Via Natural or Artificial Opening Endoscopic (ICD-10-PCS; 2017-05-05 07:34)
PROC: 30233N1 Transfusion of Nonautologous Red Blood Cells into Peripheral Vein, Percutaneous Approach (ICD-10-PCS; 2017-05-05 07:34)
DX: C60.9 Malignant neoplasm of penis, unspecified (principal); N17.9 Acute kidney failure, unspecified; E87.1 Hypo-osmolality and hyponatremia; C79.51 Secondary malignant neoplasm of bone; C77.5 Secondary and unspecified malignant neoplasm of intrapelvic lymph nodes; C77.4 Secondary and unspecified malignant neoplasm of inguinal and lower limb lymph nodes; N13.30 Unspecified hydronephrosis; D62 Acute posthemorrhagic anemia; E83.52 Hypercalcemia; I10 Essential (primary) hypertension; E11.9 Type 2 diabetes mellitus without complications; E83.42 Hypomagnesemia; Z79.84 Long term (current) use of oral hypoglycemic drugs; Z79.899 Other long term (current) drug therapy; Z92.21 Personal history of antineoplastic chemotherapy; Z95.828 Presence of other vascular implants and grafts

== ENCOUNTER → 2017-04-29 | Outpatient (REF) | payer OTHER ==
[~2017-04-29] MED LIST changes: -ACET30TAB PO; +ACETAMINOPHEN TAB 650MG DOSE (2X325MG) PO; -CEFD1CAP8 PO; -CIPR500T3 PO; -GLYX1TAB PO; -LEVA1TAB2 PO; -LISI10TA4 PO; -METF750T PO; +NS 1,000 ML IV; -NYST10PW TOP; +ONDANSETRON 4MG/2ML VIAL (J2405) IV; -PERCOCET PO; -TYLE650T35 PO; -VITA-122 PO; -instaflex PO
[2017-04-29 12:33] LABS: IONIZED CALCIUM 6.6 MG/DL (4.5-5.3)
[2017-04-29 13:02] LABS: PHOSPHORUS LEVEL 2.6 MG/DL (2.5-4.9)
[2017-04-29 13:05] LABS: PTH INTACT < 6.3 PG/ML (14.0-72.0)
== END ==
LOC: M LAB REF 12:12
DX: E83.52 Hypercalcemia (principal)

== ENCOUNTER → 2017-05-05 | Outpatient (REF) | payer OTHER | LOC: M LAB REF 12:06 | DX: C60.9 Malignant neoplasm of penis, unspecified (principal) ==

== ENCOUNTER → 2017-05-20 | Outpatient (REF) | payer OTHER ==
[2017-05-20 15:57] LABS: IRON (FE) 20 UG/DL (65-175); PERCENT SATURATION 10.2 % (19.7-50.0); TOTAL IRON BINDING CAPACITY 196 UG/DL (250-450)
== END ==
LOC: M LAB REF 13:59
DX: D64.9 Anemia, unspecified (principal)

== ENCOUNTER → 2017-06-14 | Outpatient (REF) | payer OTHER | LOC: M LAB REF 09:00 | DX: C60.9 Malignant neoplasm of penis, unspecified (principal) ==

== ENCOUNTER 2017-06-15 06:40 | Outpatient (CLI) | payer OTHER ==
[2017-06-15] MEDS: diphenhydrAMINE 25 MG CAP PO (07:03)
[2017-06-15] MEDS: ACETAMINOPHEN TAB 650MG DOSE (2X325MG) PO (07:03)
[2017-06-15 09:03] LABS: IMMEDIATE SPIN CROSSMATCH 1 2
== END 2017-06-15 11:15 | disposition home or self-care (01) ==
LOC: M INFU 06:40
DX: C60.9 Malignant neoplasm of penis, unspecified (principal); D64.9 Anemia, unspecified; I10 Essential (primary) hypertension; Z79.891 Long term (current) use of opiate analgesic; Z79.899 Other long term (current) drug therapy
CPT/HCPCS: 36430